=== PATIENT | female | born 1940 | race Caucasian/White ===

== ENCOUNTER 2020-10-10 16:39 | Inpatient (IN) ==
[2020-10-10] MEDS ORDERED: Aspirin 81 MG TAB.CHEW PO ONE (16:54)
[2020-10-10] MEDS ORDERED: *HR* Ticagrelor 90 MG TABLET PO ONE (16:54)
[2020-10-10] MEDS ORDERED: *HR* Heparin 5,000 UNIT/ML VIAL ONE (16:58)
[2020-10-10] MEDS ORDERED: Nitroglycerin 0.4 MG TAB.SUBL SL PRN (17:01)
[2020-10-10] MEDS ORDERED: *HR* Heparin 5,000 UNIT/ML VIAL IVP ONE (17:05)
[2020-10-10] MEDS ORDERED: ISOVUE-370 200 ML INFUS..BTL ONE ×2 (17:09→18:03)
[2020-10-10] MEDS ORDERED: Heparin 1,000 UNITS/500 mL 500 ML ONE ×2 (17:09→18:00)
[2020-10-10] MEDS ORDERED: *HR* Heparin 10,000 UNIT/10 ML VIAL ONE (17:09)
[2020-10-10] MEDS ORDERED: 0.9 % Sodium Chloride 1,000 ML ONE ×3 (17:09→18:32)
[2020-10-10] MEDS ORDERED: Nitroglycerin 1,000 MCG/5 ML VIAL IV ONE (17:09)
[2020-10-10] MEDS ORDERED: *HR* Midazolam HCl 2 MG/2 ML VIAL ONE (17:13)
[2020-10-10] MEDS ORDERED: *HR* FentaNYL (PF) 100 MCG/2 ML VIAL ONE (17:13)
[2020-10-10 17:22] LABS: Basophils # 0.1 K/mcL (0.0-0.2); Basophils % 0.6 %; Eosinophils # 0.1 K/mcL (0.0-0.6); Eosinophils % 0.6 %; Hematocrit 43.2 % (35.3-44.9); Hemoglobin 13.8 g/dL (11.5-15.4); Immature Granulocytes % 0.5 % (0-4); Lymphocytes # 1.8 K/mcL (0.6-4.6); Mean Corpuscular HGB Conc 31.9 g/dL (31.6-35.5); Mean Corpuscular Hemoglobin 31.9 pg (28.0-33.3); Mean Platelet Volume 11.8 fL (9.4-12.4); Monocytes # 0.8 K/mcL (0.0-1.3); Monocytes % 7.7 %; Platelet Count 272 K/mcL (140-400); Red Blood Count 4.32 M/mcL (3.82-4.97); Red Cell Distribution Width 13.2 % (11.5-14.5); Segmented Neutrophils % 73.6 %; White Blood Count 10.9 K/mcL (4.3-11.1)
[2020-10-10 17:24] LABS: Prothrombin Time 11.9 Seconds (9.4-12.1)
[2020-10-10 17:27] LABS: Activated Partial Thrombo Time 29.7 Seconds (26.0-36.0)
[2020-10-10 17:33] LABS: BUN/Creatinine Ratio 17 (6-26); Blood Urea Nitrogen 19 mg/dL (8-23); Calcium 9.9 mg/dL (8.6-10.3); Carbon Dioxide 24 mEq/L (23-29); Chloride 96 mEq/L (98-107); Glucose 120 mg/dL (70-105); Osmolality,Calculated 277 (280-300); Potassium 4.1 mEq/L (3.5-5.1); Sodium 132 mEq/L (136-145); Troponin I < 0.03 ng/mL (< 0.04); eGFR For African Americans 57 (> 60); eGFR For Non-African Americans 47 (> 60)
[2020-10-10] MEDS ORDERED: Perflutren Lipid Microsphere 1.3 ML in 0.9 % Sodium Chloride 8.7 ML IVP PRN (19:49)
[2020-10-10] MEDS ORDERED: 0.9 % Sodium Chloride 500 ML IVC SCH (20:00)
[2020-10-10] MEDS ORDERED: *HR* LORazepam 1 MG TABLET PO PRN (20:36)
[2020-10-10] MEDS ORDERED: Loratadine 10 MG TABLET PO PRN (20:36)
[2020-10-10] MEDS ORDERED: *HR* Atropine Sulfate 1 MG/10 ML SYRINGE ONE (23:08)
[2020-10-11] MEDS: *HR* HYDROcodone/Acet 7.5/325 mg TABLET PO PRN ×2 (03:51→20:08)
[2020-10-11] MEDS: *HR* Ticagrelor 90 MG TABLET PO SCH ×3 (04:13→20:02)
[2020-10-11 05:07] LABS: Basophils % 0.5 %; Eosinophils % 0.5 %; Hematocrit 38.6 % (35.3-44.9); Hemoglobin 12.7 g/dL (11.5-15.4); Immature Granulocytes % 0.4 % (0-4); Lymphocytes # 2.1 K/mcL (0.6-4.6); Lymphocytes % 25.4 %; Mean Corpuscular HGB Conc 32.9 g/dL (31.6-35.5); Mean Corpuscular Hemoglobin 32.5 pg (28.0-33.3); Mean Corpuscular Volume 98.7 fL (83.0-100.0); Mean Platelet Volume 11.8 fL (9.4-12.4); Monocytes # 0.7 K/mcL (0.0-1.3); Monocytes % 8.5 %; Neutrophils # 5.4 K/mcL (1.6-8.9); Platelet Count 234 K/mcL (140-400); Red Blood Count 3.91 M/mcL (3.82-4.97); Red Cell Distribution Width 13.4 % (11.5-14.5); Segmented Neutrophils % 64.7 %; White Blood Count 8.4 K/mcL (4.3-11.1)
[2020-10-11 05:24] LABS: BUN/Creatinine Ratio 19 (6-26); Blood Urea Nitrogen 17 mg/dL (8-23); Calcium 8.7 mg/dL (8.6-10.3); Carbon Dioxide 23 mEq/L (23-29); Chloride 101 mEq/L (98-107); Glucose 90 mg/dL (70-105); Osmolality,Calculated 275 (280-300); Potassium 4.1 mEq/L (3.5-5.1); Sodium 132 mEq/L (136-145); Troponin I 2.28 ng/mL (< 0.04); eGFR For African Americans > 60 (> 60); eGFR For Non-African Americans > 60 (> 60)
[2020-10-11] MEDS: Metoprolol XL (24 HR) Succ 25 MG TAB.ER.24H PO SCH (07:57)
[2020-10-11] MEDS: Aspirin 81 MG TAB.CHEW PO SCH (07:57)
[2020-10-11] MEDS: Gabapentin 400 MG CAPSULE PO SCH (07:58)
[2020-10-12 04:42] LABS: Chol/HDL Ratio 3.1 (0-4.9)
[2020-10-12 04:48] LABS: Troponin I 1.8 ng/mL (< 0.04)
[2020-10-12] MEDS: Gabapentin 400 MG CAPSULE PO SCH (07:34)
[2020-10-12] MEDS: *HR* Ticagrelor 90 MG TABLET PO SCH ×2 (07:34→20:46)
[2020-10-12] MEDS: Aspirin 81 MG TAB.CHEW PO SCH (07:34)
[2020-10-12] MEDS: Metoprolol XL (24 HR) Succ 25 MG TAB.ER.24H PO SCH (07:34)
[2020-10-12] MEDS: *HR* HYDROcodone/Acet 7.5/325 mg TABLET PO PRN ×3 (07:46→23:55)
[2020-10-12] MEDS ORDERED: Metoprolol XL (24 HR) Succ 25 MG TAB.ER.24H PO ONE ×2 (09:30→09:47)
[2020-10-12] MEDS ORDERED: Loratadine 10 MG TABLET PO PRN (09:47)
[2020-10-12] MEDS ORDERED: *HR* LORazepam 1 MG TABLET PO PRN (09:47)
[2020-10-12] MEDS ORDERED: Nitroglycerin 0.4 MG TAB.SUBL SL PRN (09:47)
[2020-10-13] MEDS: *HR* HYDROcodone/Acet 7.5/325 mg TABLET PO PRN (06:27)
[2020-10-13] MEDS: *HR* Ticagrelor 90 MG TABLET PO SCH (08:02)
[2020-10-13 08:06] VITALS: BP 143/83
[2020-10-13] MEDS ORDERED: Metoprolol XL (24 HR) Succ 25 MG TAB.ER.24H PO SCH (09:00)
[2020-10-13] MEDS ORDERED: Aspirin 81 MG TAB.CHEW PO SCH (09:00)
[2020-10-13] MEDS ORDERED: Metoprolol XL (24 HR) Succ 50 MG TAB.ER.24H PO SCH (09:00)
[2020-10-13] MEDS ORDERED: Gabapentin 400 MG CAPSULE PO SCH (09:00)
== END 2020-10-13 13:33 | disposition home or self-care (01) | DRG 247 ==
LOC: EMEROOARM 16:39 → ICNU 17:18 → 2NENU 10-12 17:43
PROVIDERS: ADMIT Internal Medicine Cardiovascular Disease; ATTEND Internal Medicine Cardiovascular Disease

== ENCOUNTER 2020-11-17 02:14 | Inpatient (IN) ==
[2020-11-17] MEDS ORDERED: Aspirin 81 MG TAB.CHEW PO ONE (02:30)
[2020-11-17 03:02] LABS: Basophils % 0.4 %; Eosinophils # 0.3 K/mcL (0.0-0.6); Eosinophils % 2.6 %; Hematocrit 38.8 % (35.3-44.9); Hemoglobin 12.6 g/dL (11.5-15.4); Immature Granulocytes % 0.2 % (0-4); Lymphocytes # 2.2 K/mcL (0.6-4.6); Lymphocytes % 22.8 %; Mean Corpuscular HGB Conc 32.5 g/dL (31.6-35.5); Mean Corpuscular Hemoglobin 32.8 pg (28.0-33.3); Mean Platelet Volume 12.7 fL (9.4-12.4); Monocytes # 0.6 K/mcL (0.0-1.3); Monocytes % 6.6 %; Neutrophils # 6.4 K/mcL (1.6-8.9); Platelet Count 192 K/mcL (140-400); Red Blood Count 3.84 M/mcL (3.82-4.97); Red Cell Distribution Width 13.6 % (11.5-14.5); Segmented Neutrophils % 67.4 %; White Blood Count 9.5 K/mcL (4.3-11.1)
[2020-11-17] MEDS: Nitroglycerin 0.4 MG TAB.SUBL SL PRN ×3 (03:10→03:22)
[2020-11-17 03:12] LABS: Prothrombin Time 11.7 Seconds (9.4-12.1)
[2020-11-17 03:25] LABS: BUN/Creatinine Ratio 15 (6-26); Blood Urea Nitrogen 14 mg/dL (8-23); Calcium 9.2 mg/dL (8.6-10.3); Carbon Dioxide 24 mEq/L (23-29); Chloride 104 mEq/L (98-107); Glucose 96 mg/dL (70-105); Osmolality,Calculated 282 (280-300); Potassium 3.8 mEq/L (3.5-5.1); Sodium 136 mEq/L (136-145); eGFR For African Americans > 60 (> 60); eGFR For Non-African Americans 59 (> 60)
[2020-11-17 03:27] LABS: Troponin I < 0.03 ng/mL (< 0.04)
[2020-11-17] MEDS: 0.9 % Sodium Chloride 1,000 ML IVC SCH ×2 (03:48→15:36)
[2020-11-17] MEDS ORDERED: Furosemide 20 MG TABLET PO PRN (04:35)
[2020-11-17] MEDS ORDERED: *HR* LORazepam 1 MG TABLET PO PRN (04:35)
[2020-11-17] MEDS ORDERED: Loratadine 10 MG TABLET PO PRN (04:35)
[2020-11-17] MEDS ORDERED: Naloxone 0.4 MG/ML INJ IVP PRN (04:39)
[2020-11-17] MEDS ORDERED: Ondansetron 4 MG/2 ML VIAL IVP PRN (04:39)
[2020-11-17] MEDS: *HR* Heparin 5,000 UNIT/ML VIAL SQ SCH ×2 (05:39→17:06)
[2020-11-17] MEDS: *HR* Ticagrelor 90 MG TABLET PO SCH ×2 (07:50→20:14)
[2020-11-17] MEDS: Aspirin 81 MG TAB.CHEW PO SCH (07:50)
[2020-11-17] MEDS: Metoprolol XL (24 HR) Succ 50 MG TAB.ER.24H PO SCH (07:50)
[2020-11-17] MEDS ORDERED: *HR* Heparin 5,000 UNIT/ML VIAL IVP ONE (10:30)
[2020-11-17] MEDS ORDERED: *HR* Heparin 5,000 UNIT/ML VIAL IVP PRN ×2 (10:30)
[2020-11-17 11:20] LABS: Hematocrit 36.5 % (35.3-44.9); Hemoglobin 11.7 g/dL (11.5-15.4); Mean Corpuscular HGB Conc 32.1 g/dL (31.6-35.5); Mean Corpuscular Hemoglobin 32.1 pg (28.0-33.3); Mean Corpuscular Volume 100.3 fL (83.0-100.0); Platelet Count 161 K/mcL (140-400); Red Blood Count 3.64 M/mcL (3.82-4.97); Red Cell Distribution Width 13.5 % (11.5-14.5); White Blood Count 7.2 K/mcL (4.3-11.1)
[2020-11-17] MEDS: Heparin 25,000UNIT/250ML 1/2NS 25,000 UNIT/250 ML IV.SOLN IVC SCH (11:22)
[2020-11-17 11:27] LABS: Heparin anti-factor XA UFH 0.05 IU/mL (0.30-0.70)
[2020-11-17 11:28] LABS: Prothrombin Time 12.1 Seconds (9.4-12.1)
[2020-11-17] MEDS: *HR* HYDROcodone/Acet 7.5/325 mg TABLET PO PRN (15:36)
[2020-11-17] MEDS: Gabapentin 400 MG CAPSULE PO SCH (20:14)
[2020-11-17] MEDS: Primidone 50 MG TABLET PO SCH (20:14)
[2020-11-18] MEDS: 0.9 % Sodium Chloride 1,000 ML IVC SCH ×3 (01:10→20:17)
[2020-11-18 01:31] LABS: Basophils # 0.1 K/mcL (0.0-0.2); Basophils % 0.8 %; Eosinophils # 0.3 K/mcL (0.0-0.6); Eosinophils % 4.6 %; Immature Granulocytes % 0.2 % (0-4); Lymphocytes # 2.1 K/mcL (0.6-4.6); Lymphocytes % 34.3 %; Mean Corpuscular HGB Conc 32.4 g/dL (31.6-35.5); Mean Corpuscular Hemoglobin 32.7 pg (28.0-33.3); Mean Corpuscular Volume 101.2 fL (83.0-100.0); Mean Platelet Volume 12.6 fL (9.4-12.4); Monocytes # 0.5 K/mcL (0.0-1.3); Monocytes % 8.9 %; Neutrophils # 3.1 K/mcL (1.6-8.9); Platelet Count 154 K/mcL (140-400); Red Blood Count 3.36 M/mcL (3.82-4.97); Red Cell Distribution Width 13.7 % (11.5-14.5); Segmented Neutrophils % 51.2 %; White Blood Count 6.1 K/mcL (4.3-11.1)
[2020-11-18 01:49] LABS: BUN/Creatinine Ratio 15 (6-26); Blood Urea Nitrogen 12 mg/dL (8-23); Calcium 8.2 mg/dL (8.6-10.3); Carbon Dioxide 22 mEq/L (23-29); Chloride 109 mEq/L (98-107); Glucose 92 mg/dL (70-105); Osmolality,Calculated 283 (280-300); Potassium 4.1 mEq/L (3.5-5.1); Sodium 137 mEq/L (136-145); eGFR For African Americans > 60 (> 60); eGFR For Non-African Americans > 60 (> 60)
[2020-11-18] MEDS: Primidone 50 MG TABLET PO SCH ×2 (09:11→20:18)
[2020-11-18] MEDS: Aspirin 81 MG TAB.CHEW PO SCH (09:11)
[2020-11-18] MEDS: *HR* Ticagrelor 90 MG TABLET PO SCH ×2 (09:11→20:17)
[2020-11-18] MEDS: Metoprolol XL (24 HR) Succ 50 MG TAB.ER.24H PO SCH (09:11)
[2020-11-18 10:10] LABS: Basophils # 0.1 K/mcL (0.0-0.2); Eosinophils # 0.3 K/mcL (0.0-0.6); Eosinophils % 4.4 %; Hematocrit 36.7 % (35.3-44.9); Hemoglobin 11.2 g/dL (11.5-15.4); Immature Granulocytes % 0.3 % (0-4); Lymphocytes # 2.3 K/mcL (0.6-4.6); Lymphocytes % 33.3 %; Mean Corpuscular HGB Conc 30.5 g/dL (31.6-35.5); Mean Corpuscular Volume 104.9 fL (83.0-100.0); Mean Platelet Volume 12.7 fL (9.4-12.4); Monocytes # 0.6 K/mcL (0.0-1.3); Neutrophils # 3.6 K/mcL (1.6-8.9); Platelet Count 167 K/mcL (140-400); Red Cell Distribution Width 14.1 % (11.5-14.5); White Blood Count 6.9 K/mcL (4.3-11.1)
[2020-11-18] MEDS ORDERED: *HR* Dextrose 50 % in Water (Vial) 50 ML VIAL IVP ONE (10:14)
[2020-11-18 10:19] LABS: Estimated Average Glucose 108 mg/dl; Hemoglobin A1C 5.4 %
[2020-11-18] MEDS: *HR* HYDROcodone/Acet 7.5/325 mg TABLET PO PRN ×2 (10:44→20:24)
[2020-11-18] MEDS ORDERED: *HR* Heparin 10,000 UNIT/10 ML VIAL ONE (13:16)
[2020-11-18] MEDS ORDERED: Heparin 1,000 UNITS/500 mL 500 ML ONE (13:16)
[2020-11-18] MEDS ORDERED: ISOVUE-370 200 ML INFUS..BTL ONE ×2 (13:16→14:29)
[2020-11-18] MEDS ORDERED: 0.9 % Sodium Chloride 2,000 ML ONE (13:16)
[2020-11-18] MEDS ORDERED: Nitroglycerin 1,000 MCG/5 ML VIAL IV ONE (13:17)
[2020-11-18] MEDS ORDERED: *HR* FentaNYL (PF) 100 MCG/2 ML VIAL ONE (13:29)
[2020-11-18] MEDS ORDERED: *HR* Midazolam HCl 2 MG/2 ML VIAL ONE (13:29)
[2020-11-18] MEDS ORDERED: Tirofiban 12.5 MG/250ML 12.5 MG/250 ML BAG IVC SCH (15:45)
[2020-11-18] MEDS: Heparin 25,000UNIT/250ML 1/2NS 25,000 UNIT/250 ML IV.SOLN IVC SCH (17:39)
[2020-11-18] MEDS: Gabapentin 400 MG CAPSULE PO SCH (20:17)
[2020-11-19] MEDS: 0.9 % Sodium Chloride 1,000 ML IVC SCH ×2 (05:39→15:42)
[2020-11-19] MEDS: *HR* HYDROcodone/Acet 7.5/325 mg TABLET PO PRN (06:09)
[2020-11-19] MEDS: Aspirin 81 MG TAB.CHEW PO SCH (07:53)
[2020-11-19] MEDS: *HR* Ticagrelor 90 MG TABLET PO SCH (07:53)
[2020-11-19] MEDS: Metoprolol XL (24 HR) Succ 50 MG TAB.ER.24H PO SCH (07:53)
[2020-11-19] MEDS: Primidone 50 MG TABLET PO SCH (07:54)
[2020-11-19] MEDS ORDERED: Perflutren Lipid Microsphere 1.3 ML in 0.9 % Sodium Chloride 8.7 ML IVP PRN (08:00)
[2020-11-19 10:45] VITALS: BP 115/67; PULSE 75; TEMP 97.7; O2SAT 94
== END 2020-11-19 16:31 | disposition home or self-care (01) | DRG 250 ==
LOC: 3BNU 02:14 → EMEROOARM 02:14 → SUATTDRO 04:30 → 3BNU 04:45
PROVIDERS: ADMIT Family Medicine; ATTEND Registered Nurse

== ENCOUNTER 2021-05-26 20:57 | Inpatient (IN) ==
[2021-05-26 21:42] LABS: Basophils # 0.1 K/mcL (0.0-0.2); Basophils % 0.6 %; Eosinophils # 0.1 K/mcL (0.0-0.6); Eosinophils % 1.1 %; Hematocrit 39.1 % (35.3-44.9); Hemoglobin 12.6 g/dL (11.5-15.4); Immature Granulocytes % 0.2 % (0-4); Lymphocytes # 2.7 K/mcL (0.6-4.6); Lymphocytes % 33.4 %; Mean Corpuscular HGB Conc 32.2 g/dL (31.6-35.5); Mean Corpuscular Hemoglobin 31.9 pg (28.0-33.3); Mean Platelet Volume 11.9 fL (9.4-12.4); Monocytes # 0.7 K/mcL (0.0-1.3); Monocytes % 8.6 %; Neutrophils # 4.6 K/mcL (1.6-8.9); Platelet Count 239 K/mcL (140-400); Red Blood Count 3.95 M/mcL (3.82-4.97); Red Cell Distribution Width 13.7 % (11.5-14.5); Segmented Neutrophils % 56.1 %; White Blood Count 8.2 K/mcL (4.3-11.1)
[2021-05-26 21:50] LABS: Prothrombin Time 11.2 Seconds (9.4-12.1)
[2021-05-26 21:52] LABS: Activated Partial Thrombo Time 35.5 Seconds (26.0-36.0)
[2021-05-26 22:03] LABS: Calcium 9.4 mg/dL (8.6-10.3); Potassium 4.4 mEq/L (3.5-5.1)
[2021-05-26 22:11] LABS: Troponin I 0.08 ng/mL (< 0.04)
[2021-05-26] MEDS ORDERED: 0.9 % Sodium Chloride 500 ML IVC ONE (23:10)
[2021-05-27 00:50] LABS: Albumin 3.9 g/dL (3.5-5.7); Albumin/Globulin Ratio 1.4 (1.1-2.2); Bilirubin,Direct 0.1 mg/dL (0.0-0.2); Bilirubin,Indirect 0.2 mg/dL (0.0-1.0); Bilirubin,Total 0.3 mg/dL (0.3-1.0); Globulin 2.8 g/dL (2.4-3.5); Total Protein 6.7 g/dL (6.4-8.9)
[2021-05-27] MEDS ORDERED: Aspirin 81 MG TAB.CHEW PO ONE (01:17)
[2021-05-27] MEDS ORDERED: Melatonin 3 MG TABLET PO PRN (02:35)
[2021-05-27] MEDS ORDERED: Naloxone 0.4 MG/ML INJ IVP PRN (02:35)
[2021-05-27] MEDS ORDERED: Perflutren Lipid Microsphere 1.3 ML in 0.9 % Sodium Chloride 8.7 ML IVP PRN (02:59)
[2021-05-27] MEDS ORDERED: Morphine Sulfate 2 MG/ML SYRINGE IVP ONE (04:10)
[2021-05-27] MEDS ORDERED: Nitroglycerin 0.4 MG TAB.SUBL SL PRN (04:47)
[2021-05-27] MEDS ORDERED: Acetaminophen 325 MG TABLET PO PRN (04:48)
[2021-05-27] MEDS ORDERED: *HR* Heparin 5,000 UNIT/ML VIAL IVP PRN (05:29)
[2021-05-27] MEDS ORDERED: *HR* Heparin 5,000 UNIT/ML VIAL IVP ONE (05:29)
[2021-05-27] MEDS ORDERED: *HR* LORazepam 2 MG/ML VIAL IVP ONE (05:44)
[2021-05-27] MEDS: Heparin 25,000UNIT/250ML 1/2NS 25,000 UNIT/250 ML IV.SOLN IVC SCH ×3 (06:21→20:27)
[2021-05-27] MEDS: Famotidine 20 MG/2 ML VIAL IVP SCH ×2 (06:22→17:23)
[2021-05-27 06:45] LABS: Hematocrit 36.2 % (35.3-44.9); Hemoglobin 11.9 g/dL (11.5-15.4); Mean Corpuscular HGB Conc 32.9 g/dL (31.6-35.5); Mean Corpuscular Hemoglobin 32.5 pg (28.0-33.3); Mean Corpuscular Volume 98.9 fL (83.0-100.0); Mean Platelet Volume 11.7 fL (9.4-12.4); Platelet Count 226 K/mcL (140-400); Red Blood Count 3.66 M/mcL (3.82-4.97); Red Cell Distribution Width 13.7 % (11.5-14.5); White Blood Count 8.4 K/mcL (4.3-11.1)
[2021-05-27 07:12] LABS: Heparin anti-factor XA UFH 1.41 IU/mL (0.30-0.70)
[2021-05-27 07:21] LABS: BUN/Creatinine Ratio 18 (6-26); Blood Urea Nitrogen 16 mg/dL (8-23); Calcium 8.9 mg/dL (8.6-10.3); Carbon Dioxide 24 mEq/L (23-29); Chloride 102 mEq/L (98-107); Glucose 95 mg/dL (70-105); Osmolality,Calculated 275 (280-300); Potassium 4.4 mEq/L (3.5-5.1); Sodium 132 mEq/L (136-145); eGFR For African Americans > 60 (> 60); eGFR For Non-African Americans > 60 (> 60)
[2021-05-27 07:23] LABS: Chol/HDL Ratio 2.2 (0-4.9); Thyroid Stimulating Hormone 3.637 mcIU/mL (0.340-5.600)
[2021-05-27 07:33] LABS: Folate 5.3 ng/mL (3.0-16.0)
[2021-05-27 08:22] LABS: Activated Partial Thrombo Time > 360.0 Seconds (26.0-36.0)
[2021-05-27] MEDS: Aspirin Enteric Coated 81 MG Tablet PO SCH (08:28)
[2021-05-27 09:18] LABS: Amorphous Sediment,Urine Few per hpf (None-Few); Bacteria,Urine Few per hpf (None-Few); Bilirubin,Urine Negative (Negative); Blood,Urine Negative (Negative); Clarity,Urine Clear (Clear); Color,Urine Light-Yellow (Yellow); Glucose,Urine (UA) Normal (Normal); Ketones,Urine Negative (Negative); Leukocyte Esterase,Urine Large (Negative); Mucus,Urine Few per lpf (None-Few); Nitrite,Urine Negative (Negative); Protein,Urine Negative (Neg-Trace); Specific Gravity,Urine 1.009 (1.010-1.025); Squamous Epithelial Cell,Urine Few per hpf (None-Few); Urobilinogen,Urine Normal (Normal); WBC,Urine 15-30 per hpf (0-3)
[2021-05-27 09:28] LABS: Influenza A PCR Negative (Negative); Influenza B PCR Negative (Negative); Resp. Syncytial Virus PCR Negative (Negative)
[2021-05-27 09:29] LABS: Estimated Average Glucose 117 mg/dl; Hemoglobin A1C 5.7 %
[2021-05-27 09:35] LABS: SARS-CoV-2 by PCR (In House) Negative (Negative)
[2021-05-27] MEDS ORDERED: Regadenoson 0.4 MG/5 ML SYRINGE IVP ONE (10:35)
[2021-05-27] MEDS: *HR* Ticagrelor 90 MG TABLET PO SCH ×2 (14:36→20:18)
[2021-05-27] MEDS: *HR* HYDROcodone/Acet 7.5/325 mg TABLET PO PRN ×2 (15:51→22:25)
[2021-05-27] MEDS: Metoprolol XL (24 HR) Succ 50 MG TAB.ER.24H PO SCH (17:23)
[2021-05-28] MEDS: Famotidine 20 MG/2 ML VIAL IVP SCH (05:06)
[2021-05-28] MEDS ORDERED: *HR* LORazepam 1 MG TABLET PO PRN (07:55)
[2021-05-28] MEDS ORDERED: Ranolazine 500 MG TAB.ER.12H PO SCH (09:00)
[2021-05-28] MEDS: *HR* HYDROcodone/Acet 7.5/325 mg TABLET PO PRN ×2 (09:27→17:25)
[2021-05-28] MEDS: Ranolazine 500 MG TAB.ER.12H PO SCH ×2 (09:30→19:50)
[2021-05-28] MEDS: Metoprolol XL (24 HR) Succ 50 MG TAB.ER.24H PO SCH (09:31)
[2021-05-28] MEDS: Isosorbide MONOnitrate (24 HR) 30 MG TAB.ER.24H PO SCH (09:31)
[2021-05-28] MEDS: *HR* Ticagrelor 90 MG TABLET PO SCH (09:31)
[2021-05-28] MEDS: Aspirin Enteric Coated 81 MG Tablet PO SCH (09:31)
[2021-05-28] MEDS: Primidone 50 MG TABLET PO SCH ×2 (09:41→19:51)
[2021-05-28] MEDS: Heparin 25,000UNIT/250ML 1/2NS 25,000 UNIT/250 ML IV.SOLN IVC SCH (10:04)
[2021-05-28] MEDS ORDERED: *HR* FentaNYL (PF) 100 MCG/2 ML VIAL ONE (10:24)
[2021-05-28] MEDS ORDERED: *HR* Midazolam HCl 2 MG/2 ML VIAL ONE (10:24)
[2021-05-28] MEDS ORDERED: Nitroglycerin 1,000 MCG/5 ML VIAL IV ONE (10:25)
[2021-05-28] MEDS ORDERED: 0.9 % Sodium Chloride 1,000 ML ONE (10:25)
[2021-05-28] MEDS ORDERED: *HR* Heparin 10,000 UNIT/10 ML VIAL ONE ×2 (10:25→10:34)
[2021-05-28] MEDS ORDERED: Heparin 1,000 UNITS/500 mL 500 ML ONE (10:25)
[2021-05-28] MEDS ORDERED: ISOVUE-370 200 ML INFUS..BTL ONE (10:25)
[2021-05-29] MEDS: *HR* HYDROcodone/Acet 7.5/325 mg TABLET PO PRN ×2 (04:26→19:46)
[2021-05-29 04:39] LABS: Basophils # 0.1 K/mcL (0.0-0.2); Eosinophils # 0.1 K/mcL (0.0-0.6); Eosinophils % 1.6 %; Hematocrit 36.4 % (35.3-44.9); Hemoglobin 12.1 g/dL (11.5-15.4); Immature Granulocytes % 0.3 % (0-4); Lymphocytes # 2.2 K/mcL (0.6-4.6); Lymphocytes % 35.8 %; Mean Corpuscular HGB Conc 33.2 g/dL (31.6-35.5); Mean Corpuscular Hemoglobin 32.7 pg (28.0-33.3); Mean Corpuscular Volume 98.4 fL (83.0-100.0); Monocytes # 0.7 K/mcL (0.0-1.3); Monocytes % 10.5 %; Neutrophils # 3.1 K/mcL (1.6-8.9); Platelet Count 216 K/mcL (140-400); Red Cell Distribution Width 14.1 % (11.5-14.5); Segmented Neutrophils % 50.8 %; White Blood Count 6.2 K/mcL (4.3-11.1)
[2021-05-29 04:54] LABS: BUN/Creatinine Ratio 21 (6-26); Blood Urea Nitrogen 17 mg/dL (8-23); Calcium 8.9 mg/dL (8.6-10.3); Carbon Dioxide 20 mEq/L (23-29); Chloride 105 mEq/L (98-107); Glucose 100 mg/dL (70-105); Osmolality,Calculated 276 (280-300); Phosphorous 3.8 mg/dL (2.7-4.5); Potassium 4.1 mEq/L (3.5-5.1); Sodium 132 mEq/L (136-145); eGFR For African Americans > 60 (> 60); eGFR For Non-African Americans > 60 (> 60)
[2021-05-29] MEDS: *HR* Heparin 5,000 UNIT/ML VIAL IVP PRN (05:06)
[2021-05-29] MEDS: Ranolazine 500 MG TAB.ER.12H PO SCH ×2 (08:05→21:55)
[2021-05-29] MEDS: Aspirin Enteric Coated 81 MG Tablet PO SCH (08:05)
[2021-05-29] MEDS: Metoprolol XL (24 HR) Succ 50 MG TAB.ER.24H PO SCH (08:08)
[2021-05-29] MEDS: Isosorbide MONOnitrate (24 HR) 30 MG TAB.ER.24H PO SCH (08:08)
[2021-05-29] MEDS: Famotidine 20 MG/2 ML VIAL IVP SCH (08:09)
[2021-05-29] MEDS: Primidone 50 MG TABLET PO SCH ×2 (08:12→21:55)
[2021-05-29] MEDS: *HR* LORazepam 1 MG TABLET PO PRN (20:07)
[2021-05-29] MEDS: Heparin 25,000UNIT/250ML 1/2NS 25,000 UNIT/250 ML IV.SOLN IVC SCH (21:55)
[2021-05-30] MEDS: Heparin 25,000UNIT/250ML 1/2NS 25,000 UNIT/250 ML IV.SOLN IVC SCH (06:56)
[2021-05-30] MEDS: Famotidine 20 MG/2 ML VIAL IVP SCH (08:09)
[2021-05-30] MEDS: Isosorbide MONOnitrate (24 HR) 30 MG TAB.ER.24H PO SCH (08:09)
[2021-05-30] MEDS: Primidone 50 MG TABLET PO SCH ×2 (08:09→23:03)
[2021-05-30] MEDS: Ranolazine 500 MG TAB.ER.12H PO SCH ×2 (08:09→23:02)
[2021-05-30] MEDS: Metoprolol XL (24 HR) Succ 50 MG TAB.ER.24H PO SCH (08:09)
[2021-05-30] MEDS: Aspirin Enteric Coated 81 MG Tablet PO SCH (08:09)
[2021-05-30] MEDS: *HR* HYDROcodone/Acet 7.5/325 mg TABLET PO PRN ×2 (13:23→23:15)
[2021-05-30] MEDS: *HR* LORazepam 1 MG TABLET PO PRN (23:15)
[2021-05-31] MEDS: Morphine Sulfate 2 MG/ML SYRINGE IVP PRN ×2 (04:38→14:10)
[2021-05-31] MEDS: Heparin 25,000UNIT/250ML 1/2NS 25,000 UNIT/250 ML IV.SOLN IVC SCH (07:34)
[2021-05-31] MEDS: Isosorbide MONOnitrate (24 HR) 30 MG TAB.ER.24H PO SCH (07:44)
[2021-05-31] MEDS: Ranolazine 500 MG TAB.ER.12H PO SCH ×2 (07:45→19:58)
[2021-05-31] MEDS: Metoprolol XL (24 HR) Succ 50 MG TAB.ER.24H PO SCH (07:45)
[2021-05-31] MEDS: Primidone 50 MG TABLET PO SCH ×2 (07:46→19:57)
[2021-05-31] MEDS: Famotidine 20 MG/2 ML VIAL IVP SCH (07:46)
[2021-05-31] MEDS: Aspirin Enteric Coated 81 MG Tablet PO SCH (07:46)
[2021-05-31] MEDS: *HR* HYDROcodone/Acet 7.5/325 mg TABLET PO PRN (07:56)
[2021-05-31 11:03] LABS: Chol/HDL Ratio 1.8 (0-4.9)
[2021-05-31] MEDS: *HR* LORazepam 1 MG TABLET PO PRN (14:48)
[2021-05-31] MEDS ORDERED: Morphine Sulfate 2 MG/ML SYRINGE IVP ONE (16:36)
[2021-05-31] MEDS: Ondansetron 4 MG/2 ML VIAL IVP PRN (23:45)
[2021-06-01] MEDS: *HR* HYDROcodone/Acet 7.5/325 mg TABLET PO PRN ×2 (00:46→22:51)
[2021-06-01] MEDS: *HR* LORazepam 1 MG TABLET PO PRN ×2 (00:46→22:51)
[2021-06-01 02:10] LABS: Basophils # 0.1 K/mcL (0.0-0.2); Basophils % 0.6 %; Eosinophils # 0.2 K/mcL (0.0-0.6); Eosinophils % 2.3 %; Hematocrit 37.6 % (35.3-44.9); Hemoglobin 11.6 g/dL (11.5-15.4); Immature Granulocytes % 0.4 % (0-4); Lymphocytes # 2.6 K/mcL (0.6-4.6); Lymphocytes % 31.2 %; Mean Corpuscular HGB Conc 30.9 g/dL (31.6-35.5); Mean Corpuscular Hemoglobin 31.5 pg (28.0-33.3); Mean Corpuscular Volume 102.2 fL (83.0-100.0); Monocytes # 0.8 K/mcL (0.0-1.3); Neutrophils # 4.6 K/mcL (1.6-8.9); Platelet Count 195 K/mcL (140-400); Red Blood Count 3.68 M/mcL (3.82-4.97); Red Cell Distribution Width 14.3 % (11.5-14.5); Segmented Neutrophils % 55.5 %; White Blood Count 8.3 K/mcL (4.3-11.1)
[2021-06-01 02:28] LABS: BUN/Creatinine Ratio 25 (6-26); Blood Urea Nitrogen 20 mg/dL (8-23); Calcium 9.4 mg/dL (8.6-10.3); Carbon Dioxide 20 mEq/L (23-29); Chloride 100 mEq/L (98-107); Glucose 88 mg/dL (70-105); Osmolality,Calculated 268 (280-300); Potassium 4.8 mEq/L (3.5-5.1); Sodium 128 mEq/L (136-145); eGFR For African Americans > 60 (> 60); eGFR For Non-African Americans > 60 (> 60)
[2021-06-01] MEDS: Heparin 25,000UNIT/250ML 1/2NS 25,000 UNIT/250 ML IV.SOLN IVC SCH ×2 (07:15→14:56)
[2021-06-01] MEDS: Ranolazine 500 MG TAB.ER.12H PO SCH ×2 (09:25→20:28)
[2021-06-01] MEDS: Isosorbide MONOnitrate (24 HR) 30 MG TAB.ER.24H PO SCH (09:25)
[2021-06-01] MEDS: Famotidine 20 MG/2 ML VIAL IVP SCH (09:25)
[2021-06-01] MEDS: Aspirin Enteric Coated 81 MG Tablet PO SCH (09:25)
[2021-06-01] MEDS: Metoprolol XL (24 HR) Succ 50 MG TAB.ER.24H PO SCH (09:25)
[2021-06-01] MEDS: Primidone 50 MG TABLET PO SCH ×2 (09:25→20:28)
[2021-06-01] MEDS: Morphine Sulfate 2 MG/ML SYRINGE IVP PRN (12:23)
[2021-06-02 00:40] LABS: Basophils % 0.5 %; Eosinophils # 0.1 K/mcL (0.0-0.6); Eosinophils % 1.3 %; Hematocrit 33.6 % (35.3-44.9); Hemoglobin 11.1 g/dL (11.5-15.4); Immature Granulocytes % 0.3 % (0-4); Lymphocytes # 2.2 K/mcL (0.6-4.6); Lymphocytes % 28.1 %; Mean Corpuscular Hemoglobin 32.1 pg (28.0-33.3); Mean Corpuscular Volume 97.1 fL (83.0-100.0); Mean Platelet Volume 12.4 fL (9.4-12.4); Monocytes # 0.9 K/mcL (0.0-1.3); Monocytes % 10.7 %; Neutrophils # 4.7 K/mcL (1.6-8.9); Platelet Count 175 K/mcL (140-400); Red Blood Count 3.46 M/mcL (3.82-4.97); Segmented Neutrophils % 59.1 %; White Blood Count 7.9 K/mcL (4.3-11.1)
[2021-06-02 00:54] LABS: INR 1.1; Prothrombin Time 12.3 Seconds (9.4-12.1)
[2021-06-02 00:58] LABS: BUN/Creatinine Ratio 23 (6-26); Blood Urea Nitrogen 18 mg/dL (8-23); Carbon Dioxide 22 mEq/L (23-29); Chloride 95 mEq/L (98-107); Glucose 104 mg/dL (70-105); Magnesium 1.7 mg/dL (1.6-2.6); Osmolality,Calculated 260 (280-300); Potassium 4.5 mEq/L (3.5-5.1); Sodium 124 mEq/L (136-145); eGFR For African Americans > 60 (> 60); eGFR For Non-African Americans > 60 (> 60)
[2021-06-02] MEDS: *HR* Heparin 5,000 UNIT/ML VIAL IVP PRN (01:14)
[2021-06-02] MEDS: Primidone 50 MG TABLET PO SCH ×2 (08:46→21:49)
[2021-06-02] MEDS: Famotidine 20 MG/2 ML VIAL IVP SCH (08:46)
[2021-06-02] MEDS: Metoprolol XL (24 HR) Succ 50 MG TAB.ER.24H PO SCH (08:46)
[2021-06-02] MEDS: Aspirin Enteric Coated 81 MG Tablet PO SCH (08:47)
[2021-06-02] MEDS: Isosorbide MONOnitrate (24 HR) 30 MG TAB.ER.24H PO SCH (08:47)
[2021-06-02] MEDS: Ranolazine 500 MG TAB.ER.12H PO SCH ×2 (08:47→21:49)
[2021-06-02] MEDS: 0.9 % Sodium Chloride 1,000 ML IVC SCH ×2 (08:54→21:50)
[2021-06-02 09:42] LABS: BUN/Creatinine Ratio 21 (6-26); Blood Urea Nitrogen 18 mg/dL (8-23); Calcium 9.5 mg/dL (8.6-10.3); Carbon Dioxide 22 mEq/L (23-29); Chloride 95 mEq/L (98-107); Glucose 105 mg/dL (70-105); Osmolality,Calculated 262 (280-300); Potassium 4.3 mEq/L (3.5-5.1); Sodium 125 mEq/L (136-145); eGFR For African Americans > 60 (> 60); eGFR For Non-African Americans > 60 (> 60)
[2021-06-02] MEDS: *HR* HYDROcodone/Acet 7.5/325 mg TABLET PO PRN ×2 (13:59→21:49)
[2021-06-02] MEDS: *HR* LORazepam 1 MG TABLET PO PRN ×2 (14:03→21:49)
[2021-06-02] MEDS: Chlorhexidine Rinse 15 ML MOUTHWASH MM SCH (21:50)
[2021-06-03] MEDS: Heparin 25,000UNIT/250ML 1/2NS 25,000 UNIT/250 ML IV.SOLN IVC SCH ×2 (01:44→19:25)
[2021-06-03] MEDS ORDERED: Cardioplegic Solution w/ Potassium 5 MEQ TH ONE ×3 (06:00)
[2021-06-03] MEDS ORDERED: Cardioplegic Solution w/ Potassium 20 MEQ TH ONE (06:00)
[2021-06-03] MEDS ORDERED: Heparin 15,000 UNIT in 0.9 % Sodium Chloride 500 ML IV ONE (06:00)
[2021-06-03] MEDS ORDERED: Aspirin 81 MG TAB.CHEW PO ONE (06:00)
[2021-06-03] MEDS ORDERED: Norepinephrine 4 MG in 0.9 % Sodium Chloride 250 ML IVC PRN (06:00)
[2021-06-03 06:13] LABS: Basophils % 0.6 %; Eosinophils # 0.1 K/mcL (0.0-0.6); Eosinophils % 1.6 %; Hematocrit 32.1 % (35.3-44.9); Hemoglobin 10.7 g/dL (11.5-15.4); Immature Granulocytes % 0.3 % (0-4); Lymphocytes # 2.3 K/mcL (0.6-4.6); Lymphocytes % 37.4 %; Mean Corpuscular HGB Conc 33.3 g/dL (31.6-35.5); Mean Corpuscular Hemoglobin 32.3 pg (28.0-33.3); Mean Platelet Volume 12.3 fL (9.4-12.4); Monocytes # 0.8 K/mcL (0.0-1.3); Monocytes % 13.2 %; Neutrophils # 2.9 K/mcL (1.6-8.9); Platelet Count 178 K/mcL (140-400); Red Blood Count 3.31 M/mcL (3.82-4.97); Red Cell Distribution Width 14.1 % (11.5-14.5); Segmented Neutrophils % 46.9 %; White Blood Count 6.2 K/mcL (4.3-11.1)
[2021-06-03 06:19] LABS: Activated Partial Thrombo Time 50.5 Seconds (26.0-36.0)
[2021-06-03 06:25] LABS: BUN/Creatinine Ratio 17 (6-26); Blood Urea Nitrogen 14 mg/dL (8-23); Carbon Dioxide 25 mEq/L (23-29); Chloride 99 mEq/L (98-107); Glucose 100 mg/dL (70-105); Magnesium 1.7 mg/dL (1.6-2.6); Osmolality,Calculated 267 (280-300); Potassium 4.1 mEq/L (3.5-5.1); Sodium 128 mEq/L (136-145); eGFR For African Americans > 60 (> 60); eGFR For Non-African Americans > 60 (> 60)
[2021-06-03] MEDS ORDERED: CeFAZolin Syr 2,000MG/20 ML 2,000 MG/20 ML SYRINGE IVPB ONE (07:00)
[2021-06-03 08:09] LABS: INR 1.2; Prothrombin Time 13.2 Seconds (9.4-12.1)
[2021-06-03] MEDS: Aspirin Enteric Coated 81 MG Tablet PO SCH (08:28)
[2021-06-03] MEDS: Ranolazine 500 MG TAB.ER.12H PO SCH ×2 (08:28→21:35)
[2021-06-03] MEDS: Metoprolol XL (24 HR) Succ 50 MG TAB.ER.24H PO SCH (08:29)
[2021-06-03] MEDS: Primidone 50 MG TABLET PO SCH ×2 (08:29→21:35)
[2021-06-03] MEDS: Isosorbide MONOnitrate (24 HR) 30 MG TAB.ER.24H PO SCH (08:29)
[2021-06-03] MEDS: Chlorhexidine Rinse 15 ML MOUTHWASH MM SCH (08:30)
[2021-06-03] MEDS: Famotidine 20 MG/2 ML VIAL IVP SCH (08:30)
[2021-06-03] MEDS: *HR* HYDROcodone/Acet 7.5/325 mg TABLET PO PRN ×2 (08:35→21:35)
[2021-06-03] MEDS: *HR* LORazepam 1 MG TABLET PO PRN (08:40)
[2021-06-03] MEDS: 0.9 % Sodium Chloride 1,000 ML IVC SCH ×3 (11:58→19:25)
[2021-06-03 13:16] LABS: Thyroid Stimulating Hormone 2.482 mcIU/mL (0.340-5.600)
[2021-06-04] MEDS: Ondansetron 4 MG/2 ML VIAL IVP PRN (01:14)
[2021-06-04] MEDS: *HR* LORazepam 1 MG TABLET PO PRN ×2 (01:14→21:05)
[2021-06-04] MEDS: 0.9 % Sodium Chloride 1,000 ML IVC SCH (03:25)
[2021-06-04 05:30] LABS: Basophils % 0.5 %; Eosinophils # 0.1 K/mcL (0.0-0.6); Eosinophils % 1.3 %; Hematocrit 30.3 % (35.3-44.9); Immature Granulocytes % 0.3 % (0-4); Lymphocytes # 2.9 K/mcL (0.6-4.6); Lymphocytes % 36.7 %; Mean Corpuscular Hemoglobin 32.6 pg (28.0-33.3); Mean Corpuscular Volume 98.7 fL (83.0-100.0); Mean Platelet Volume 12.1 fL (9.4-12.4); Monocytes % 12.4 %; Neutrophils # 3.8 K/mcL (1.6-8.9); Platelet Count 179 K/mcL (140-400); Red Blood Count 3.07 M/mcL (3.82-4.97); Red Cell Distribution Width 14.7 % (11.5-14.5); Segmented Neutrophils % 48.8 %; White Blood Count 7.8 K/mcL (4.3-11.1)
[2021-06-04 05:42] LABS: INR 1.1
[2021-06-04 05:44] LABS: BUN/Creatinine Ratio 15 (6-26); Blood Urea Nitrogen 12 mg/dL (8-23); Calcium 8.5 mg/dL (8.6-10.3); Carbon Dioxide 23 mEq/L (23-29); Chloride 103 mEq/L (98-107); Glucose 91 mg/dL (70-105); Magnesium 1.7 mg/dL (1.6-2.6); Osmolality,Calculated 269 (280-300); Potassium 4.2 mEq/L (3.5-5.1); Sodium 130 mEq/L (136-145); eGFR For African Americans > 60 (> 60); eGFR For Non-African Americans > 60 (> 60)
[2021-06-04] MEDS: Isosorbide MONOnitrate (24 HR) 30 MG TAB.ER.24H PO SCH (07:26)
[2021-06-04] MEDS: Metoprolol XL (24 HR) Succ 50 MG TAB.ER.24H PO SCH (07:27)
[2021-06-04] MEDS: Primidone 50 MG TABLET PO SCH ×2 (07:27→20:57)
[2021-06-04] MEDS: Aspirin Enteric Coated 81 MG Tablet PO SCH (07:27)
[2021-06-04] MEDS: Ranolazine 500 MG TAB.ER.12H PO SCH (07:28)
[2021-06-04] MEDS: Famotidine 20 MG/2 ML VIAL IVP SCH (07:28)
[2021-06-04] MEDS: *HR* HYDROcodone/Acet 7.5/325 mg TABLET PO PRN ×2 (07:33→15:32)
[2021-06-04] MEDS ORDERED: Tolvaptan 15 MG TABLET PO ONE (11:25)
[2021-06-04] MEDS: Heparin 25,000UNIT/250ML 1/2NS 25,000 UNIT/250 ML IV.SOLN IVC SCH (16:21)
[2021-06-04] MEDS ORDERED: *HR* LORazepam 1 MG TABLET PO PRN (22:18)
[2021-06-04] MEDS ORDERED: Ondansetron 4 MG/2 ML VIAL IVP PRN (22:19)
[2021-06-05] MEDS: *HR* HYDROcodone/Acet 7.5/325 mg TABLET PO PRN ×4 (01:03→20:25)
[2021-06-05] MEDS: Chlorhexidine Rinse 15 ML MOUTHWASH MM SCH ×2 (05:58→22:18)
[2021-06-05] MEDS ORDERED: NiCARdipine 2.5 MG/10 ML Syringe IVPB ONE (06:09)
[2021-06-05] MEDS ORDERED: *HR* Midazolam HCl 5 MG/5 ML VIAL IVP ONE ×2 (06:18→09:50)
[2021-06-05] MEDS ORDERED: *HR* FentaNYL (PF) 250 MCG/5 ML VIAL ONE ×2 (06:19→09:51)
[2021-06-05] MEDS ORDERED: *HR* Rocuronium Bromide 50 MG/5 ML VIAL ONE (06:20)
[2021-06-05] MEDS ORDERED: *HR* Etomidate 20 MG/10 ML AMPUL IVP ONE (06:21)
[2021-06-05] MEDS ORDERED: Famotidine 20 MG/2 ML VIAL ONE (06:21)
[2021-06-05] MEDS ORDERED: Calcium Gluconate 1,000 MG/10 ML VIAL ONE ×2 (06:21→10:39)
[2021-06-05] MEDS ORDERED: Tranexamic Acid 1,000 MG/10 ML VIAL ONE ×2 (06:21→10:00)
[2021-06-05] MEDS ORDERED: Protamine Sulfate 250 MG/25 ML VIAL IVP ONE (06:23)
[2021-06-05] MEDS ORDERED: Heparin 15,000 UNIT in 0.9 % Sodium Chloride 500 ML IV ONE (07:45)
[2021-06-05] MEDS ORDERED: Cardioplegic Solution w/ Potassium 20 MEQ TH ONE (07:45)
[2021-06-05] MEDS ORDERED: Cardioplegic Solution w/ Potassium 5 MEQ TH ONE ×3 (07:45)
[2021-06-05] MEDS ORDERED: Norepinephrine 4 MG in 0.9 % Sodium Chloride 250 ML IVC PRN (07:45)
[2021-06-05] MEDS ORDERED: CeFAZolin Syr 2,000MG/20 ML 2,000 MG/20 ML SYRINGE IVPB ONE ×2 (08:00→09:15)
[2021-06-05 08:10] LABS: ABG Base Excess -3 mEq/L (-2 to 3); ABG Chloride 105 mEq/L (98-107); ABG Glucose 86 mg/dL (60-95); ABG HCO3 22 mEq/L (21-27); ABG Ionized Calcium 1.26 mmol/L (1.15-1.35); ABG Oxygen Saturation 100 % (95-98); ABG PCO2 36 mmHg (35-45); ABG PH 7.39 pH Units (7.32-7.45); ABG PO2 171 mmHg (85-104); ABG TCO2 23 mEq/L (20-26)
[2021-06-05] MEDS ORDERED: niCARdipine 40 MG/200 ML MLS IVC ONE (08:57)
[2021-06-05 09:41] LABS: ABG Base Excess -5 mEq/L (-2 to 3); ABG Chloride 106 mEq/L (98-107); ABG Glucose 105 mg/dL (60-95); ABG HCO3 20 mEq/L (21-27); ABG Oxygen Saturation 100 % (95-98); ABG PCO2 35 mmHg (35-45); ABG PH 7.36 pH Units (7.32-7.45); ABG PO2 182 mmHg (85-104); ABG TCO2 21 mEq/L (20-26)
[2021-06-05] MEDS ORDERED: *HR* Phenylephrine 10 MG/ML VIAL ONE (10:00)
[2021-06-05] MEDS ORDERED: Mannitol 25% vial 12.5 GM/50 ML VIAL ONE (10:00)
[2021-06-05] MEDS ORDERED: *HR* Heparin 10,000 UNIT/10 ML VIAL ONE (10:00)
[2021-06-05] MEDS ORDERED: Albumin Human 25% 25 GM/100 ML IV.SOLN ONE (10:00)
[2021-06-05] MEDS ORDERED: Sodium Bicarbonate 50 MEQ/50 ML VIAL ONE (10:00)
[2021-06-05] MEDS ORDERED: *HR* Magnesium Sulfate 2 GM/50 ML PIGGYBACK IVPB ONE (10:00)
[2021-06-05 10:40] LABS: ABG Base Excess -3 mEq/L (-2 to 3); ABG Chloride 101 mEq/L (98-107); ABG Glucose 164 mg/dL (60-95); ABG HCO3 22 mEq/L (21-27); ABG Ionized Calcium 1.09 mmol/L (1.15-1.35); ABG Oxygen Saturation 100 % (95-98); ABG PCO2 34 mmHg (35-45); ABG PH 7.41 pH Units (7.32-7.45); ABG PO2 595 mmHg (85-104); ABG TCO2 23 mEq/L (20-26)
[2021-06-05 10:56] LABS: ABG Base Excess -2 mEq/L (-2 to 3); ABG Chloride 103 mEq/L (98-107); ABG Glucose 146 mg/dL (60-95); ABG HCO3 23 mEq/L (21-27); ABG Ionized Calcium 1.12 mmol/L (1.15-1.35); ABG Oxygen Saturation 100 % (95-98); ABG PCO2 36 mmHg (35-45); ABG PH 7.41 pH Units (7.32-7.45); ABG PO2 586 mmHg (85-104); ABG TCO2 24 mEq/L (20-26)
[2021-06-05 11:21] LABS: ABG Base Excess -5 mEq/L (-2 to 3); ABG Chloride 104 mEq/L (98-107); ABG Glucose 124 mg/dL (60-95); ABG HCO3 20 mEq/L (21-27); ABG Ionized Calcium 1.52 mmol/L (1.15-1.35); ABG Oxygen Saturation 100 % (95-98); ABG PCO2 34 mmHg (35-45); ABG PH 7.38 pH Units (7.32-7.45); ABG PO2 196 mmHg (85-104); ABG TCO2 21 mEq/L (20-26)
[2021-06-05] MEDS ORDERED: Albumin Human 5% 12.5 GM/250 ML IV.SOLN IVPB PRN (11:31)
[2021-06-05] MEDS ORDERED: Calcium Gluconate 1gm/50mL 1 GM/50 ML BAG IVPB PRN (11:31)
[2021-06-05] MEDS ORDERED: Acetaminophen 650 MG RECTAL SUPP RC PRN (11:31)
[2021-06-05] MEDS ORDERED: *HR* Dextrose 50 % in Water (Syg) 50 ML SYRINGE IVP PRN (11:31)
[2021-06-05] MEDS ORDERED: Insulin Regular, Human 100 UNIT/ML IV PRN (11:31)
[2021-06-05] MEDS ORDERED: Naloxone 0.4 MG/ML INJ IVP PRN (11:31)
[2021-06-05] MEDS ORDERED: Sennosides 8.6 MG TABLET PO PRN (11:31)
[2021-06-05 12:45] LABS: ABG Base Excess -4 mEq/L (-2 to 3); ABG HCO3 21 mEq/L (21-27); ABG Oxygen Saturation 97 % (95-98); ABG PCO2 38 mmHg (35-45); ABG PH 7.35 pH Units (7.32-7.45); ABG PO2 93 mmHg (85-104); ABG TCO2 22 mEq/L (20-26); Blood Gas Modality ASSIST CONTROL; Blood Gas VT 500 cc
[2021-06-05 12:46] LABS: Lymphocytes % 10.2 %; Mean Corpuscular Hemoglobin 31.6 pg (28.0-33.3)
[2021-06-05 12:48] LABS: Basophils # 0.1 K/mcL (0.0-0.2); Basophils % 0.3 %; Eosinophils # 0.1 K/mcL (0.0-0.6); Eosinophils % 0.6 %; Hematocrit 35.8 % (35.3-44.9); Hemoglobin 11.7 g/dL (11.5-15.4); Immature Granulocytes % 0.6 % (0-4); Immature Platelets 12.4 % (1.1-6.1); Mean Corpuscular HGB Conc 32.7 g/dL (31.6-35.5); Mean Corpuscular Volume 96.8 fL (83.0-100.0); Mean Platelet Volume 12.2 fL (9.4-12.4); Monocytes # 1.4 K/mcL (0.0-1.3); Monocytes % 7.4 %; Platelet Count 100 K/mcL (140-400); Red Cell Distribution Width 15.6 % (11.5-14.5); Segmented Neutrophils % 80.9 %; White Blood Count 19.1 K/mcL (4.3-11.1)
[2021-06-05 12:55] LABS: Neutrophils # 15.5 K/mcL (1.6-8.9)
[2021-06-05 12:56] LABS: INR 1.2; Prothrombin Time 13.7 Seconds (9.4-12.1)
[2021-06-05 12:59] LABS: Activated Partial Thrombo Time 35.9 Seconds (26.0-36.0)
[2021-06-05] MEDS: Metoclopramide 10 MG/2 ML VIAL IVP SCH ×2 (13:00→16:22)
[2021-06-05] MEDS: *HR* FentaNYL (PF) 100 MCG/2 ML VIAL IVP PRN ×2 (13:01→23:36)
[2021-06-05 13:02] LABS: BUN/Creatinine Ratio 14 (6-26); Blood Urea Nitrogen 10 mg/dL (8-23); Calcium 8.6 mg/dL (8.6-10.3); Carbon Dioxide 21 mEq/L (23-29); Chloride 109 mEq/L (98-107); Glucose 87 mg/dL (70-105); Magnesium 2.3 mg/dL (1.6-2.6); Osmolality,Calculated 282 (280-300); Potassium 3.2 mEq/L (3.5-5.1); Sodium 137 mEq/L (136-145); eGFR For African Americans > 60 (> 60); eGFR For Non-African Americans > 60 (> 60)
[2021-06-05] MEDS: 0.9 % Sodium Chloride w KCl 20 MEQ/1,000 ML MLS IVC SCH (13:02)
[2021-06-05] MEDS: niCARdipine 20 MG/200 ML MLS IVC SCH ×2 (13:40→16:02)
[2021-06-05] MEDS: Pantoprazole 40 MG VIAL IVP SCH (13:50)
[2021-06-05] MEDS: Potassium Chloride 40 MEQ/200 ML BAG IVPB PRN ×2 (13:51→14:50)
[2021-06-05] MEDS: Norepinephrine 4 MG/254 ML IV.SOLN IVC SCH (15:34)
[2021-06-05 15:54] LABS: ABG Base Excess -7 mEq/L (-2 to 3); ABG HCO3 19 mEq/L (21-27); ABG Oxygen Saturation 96 % (95-98); ABG PCO2 36 mmHg (35-45); ABG PH 7.33 pH Units (7.32-7.45); ABG PO2 87 mmHg (85-104); ABG TCO2 20 mEq/L (20-26); Blood Gas Modality ASSIST CONTROL; Blood Gas VT 500 cc
[2021-06-05] MEDS: CeFAZolin 2 GM/120 ML BAG IVPB SCH (16:21)
[2021-06-05 18:08] LABS: ABG Base Excess -4 mEq/L (-2 to 3); ABG Chloride 101 mEq/L (98-107); ABG Glucose 158 mg/dL (60-95); ABG HCO3 20 mEq/L (21-27); ABG Ionized Calcium 1.05 mmol/L (1.15-1.35); ABG PCO2 30 mmHg (35-45); ABG PH 7.43 pH Units (7.32-7.45); ABG PO2 > 630 mmHg (85-104); ABG TCO2 21 mEq/L (20-26)
[2021-06-05 20:09] LABS: ABG Base Excess -7 mEq/L (-2 to 3); ABG HCO3 18 mEq/L (21-27); ABG Oxygen Saturation 92 % (95-98); ABG PCO2 34 mmHg (35-45); ABG PH 7.34 pH Units (7.32-7.45); ABG PO2 68 mmHg (85-104); ABG TCO2 19 mEq/L (20-26); Blood Gas Modality CPAP/PS; Blood Gas Pressure Support 8 cm H2O
[2021-06-05 20:30] LABS: Magnesium 2.3 mg/dL (1.6-2.6); Potassium 4.3 mEq/L (3.5-5.1)
[2021-06-05 21:03] LABS: ABG Base Excess -6 mEq/L (-2 to 3); ABG HCO3 19 mEq/L (21-27); ABG Oxygen Saturation 88 % (95-98); ABG PCO2 35 mmHg (35-45); ABG PH 7.35 pH Units (7.32-7.45); ABG PO2 57 mmHg (85-104); ABG TCO2 20 mEq/L (20-26)
[2021-06-06] MEDS: CeFAZolin 2 GM/120 ML BAG IVPB SCH (01:20)
[2021-06-06] MEDS: Metoclopramide 10 MG/2 ML VIAL IVP SCH ×5 (01:21→23:00)
[2021-06-06] MEDS: *HR* FentaNYL (PF) 100 MCG/2 ML VIAL IVP PRN ×3 (02:37→09:35)
[2021-06-06 03:32] LABS: Immature Granulocytes % 0.4 % (0-4); Red Cell Distribution Width 16.2 % (11.5-14.5)
[2021-06-06 03:34] LABS: Basophils # 0.1 K/mcL (0.0-0.2); Basophils % 0.3 %; Hematocrit 33.8 % (35.3-44.9); Hemoglobin 10.8 g/dL (11.5-15.4); Immature Platelets 13.9 % (1.1-6.1); Lymphocytes # 0.9 K/mcL (0.6-4.6); Lymphocytes % 6.1 %; Mean Corpuscular Hemoglobin 31.5 pg (28.0-33.3); Mean Corpuscular Volume 98.5 fL (83.0-100.0); Mean Platelet Volume 12.9 fL (9.4-12.4); Monocytes # 1.4 K/mcL (0.0-1.3); Neutrophils # 12.7 K/mcL (1.6-8.9); Platelet Count 115 K/mcL (140-400); Red Blood Count 3.43 M/mcL (3.82-4.97); Segmented Neutrophils % 84.2 %; White Blood Count 15.1 K/mcL (4.3-11.1)
[2021-06-06 03:44] LABS: BUN/Creatinine Ratio 14 (6-26); Blood Urea Nitrogen 10 mg/dL (8-23); Calcium 8.6 mg/dL (8.6-10.3); Carbon Dioxide 19 mEq/L (23-29); Chloride 109 mEq/L (98-107); Glucose 126 mg/dL (70-105); Magnesium 2.3 mg/dL (1.6-2.6); Osmolality,Calculated 283 (280-300); Potassium 4.2 mEq/L (3.5-5.1); Sodium 136 mEq/L (136-145); eGFR For African Americans > 60 (> 60); eGFR For Non-African Americans > 60 (> 60)
[2021-06-06 03:48] LABS: INR 1.2; Prothrombin Time 13.3 Seconds (9.4-12.1)
[2021-06-06] MEDS: *HR* HYDROcodone/Acet 7.5/325 mg TABLET PO PRN ×4 (06:21→19:30)
[2021-06-06] MEDS: niCARdipine 20 MG/200 ML MLS IVC SCH ×2 (06:57→07:10)
[2021-06-06] MEDS: Norepinephrine 4 MG/254 ML IV.SOLN IVC SCH (07:10)
[2021-06-06] MEDS: 0.9 % Sodium Chloride w KCl 20 MEQ/1,000 ML MLS IVC SCH (07:10)
[2021-06-06] MEDS: Pantoprazole 40 MG VIAL IVP SCH (07:43)
[2021-06-06] MEDS: Aspirin Enteric Coated 81 MG Tablet PO SCH (07:44)
[2021-06-06] MEDS: Furosemide 20 MG/2 ML VIAL IVP SCH ×2 (07:44→19:31)
[2021-06-06] MEDS: Chlorhexidine Rinse 15 ML MOUTHWASH MM SCH ×3 (07:44→19:30)
[2021-06-06] MEDS ORDERED: D5% in Water 1,000 ML IVC PRN (08:23)
[2021-06-06] MEDS ORDERED: *HR* Dextrose 50 % in Water (Syg) 50 ML SYRINGE IVP PRN (08:23)
[2021-06-06] MEDS ORDERED: Dextrose Gel 15 GM/37.5 ML TUBE PO PRN ×2 (08:23)
[2021-06-06] MEDS ORDERED: *HR* LORazepam 1 MG TABLET PO PRN (08:24)
[2021-06-06] MEDS: *HR* Heparin 5,000 UNIT/ML VIAL SQ SCH ×2 (08:52→16:16)
[2021-06-06] MEDS: Ranolazine 500 MG TAB.ER.12H PO SCH (09:44)
[2021-06-06] MEDS: Insulin LISPRO 300 UNITS/3 ML VIAL SUBQ SCH ×2 (11:05→15:52)
[2021-06-06] MEDS ORDERED: Insulin LISPRO 300 UNITS/3 ML VIAL SUBQ SCH (21:00)
[2021-06-07 03:21] LABS: Basophils % 0.3 %; Eosinophils % 0.1 %; Hematocrit 30.9 % (35.3-44.9); Hemoglobin 10.1 g/dL (11.5-15.4); Immature Granulocytes % 0.5 % (0-4); Lymphocytes # 1.9 K/mcL (0.6-4.6); Lymphocytes % 12.6 %; Mean Corpuscular HGB Conc 32.7 g/dL (31.6-35.5); Mean Corpuscular Volume 97.8 fL (83.0-100.0); Monocytes # 1.7 K/mcL (0.0-1.3); Monocytes % 11.4 %; Neutrophils # 11.3 K/mcL (1.6-8.9); Platelet Count 121 K/mcL (140-400); Red Blood Count 3.16 M/mcL (3.82-4.97); Red Cell Distribution Width 16.2 % (11.5-14.5); Segmented Neutrophils % 75.1 %; White Blood Count 15.1 K/mcL (4.3-11.1)
[2021-06-07 03:39] LABS: BUN/Creatinine Ratio 17 (6-26); Blood Urea Nitrogen 12 mg/dL (8-23); Calcium 8.9 mg/dL (8.6-10.3); Carbon Dioxide 23 mEq/L (23-29); Chloride 104 mEq/L (98-107); Glucose 110 mg/dL (70-105); Magnesium 1.8 mg/dL (1.6-2.6); Osmolality,Calculated 276 (280-300); Potassium 3.5 mEq/L (3.5-5.1); Sodium 133 mEq/L (136-145); eGFR For African Americans > 60 (> 60); eGFR For Non-African Americans > 60 (> 60)
[2021-06-07] MEDS: *HR* HYDROcodone/Acet 7.5/325 mg TABLET PO PRN ×4 (04:42→20:21)
[2021-06-07] MEDS: Metoclopramide 10 MG/2 ML VIAL IVP SCH ×3 (05:00→17:09)
[2021-06-07] MEDS: *HR* Heparin 5,000 UNIT/ML VIAL SQ SCH ×2 (05:00→17:09)
[2021-06-07] MEDS: Chlorhexidine Rinse 15 ML MOUTHWASH MM SCH ×2 (07:35→20:21)
[2021-06-07] MEDS: Aspirin Enteric Coated 81 MG Tablet PO SCH (07:35)
[2021-06-07] MEDS: Furosemide 20 MG/2 ML VIAL IVP SCH ×2 (07:35→20:21)
[2021-06-07] MEDS: Insulin LISPRO 300 UNITS/3 ML VIAL SUBQ SCH ×4 (08:26→20:00)
[2021-06-07] MEDS ORDERED: Dextrose Gel 15 GM/37.5 ML TUBE PO PRN ×2 (13:51)
[2021-06-07] MEDS ORDERED: Naloxone 0.4 MG/ML INJ IVP PRN (13:51)
[2021-06-07] MEDS ORDERED: *HR* Dextrose 50 % in Water (Syg) 50 ML SYRINGE IVP PRN (13:51)
[2021-06-07] MEDS ORDERED: Ondansetron 4 MG/2 ML VIAL IVP PRN (13:51)
[2021-06-07] MEDS ORDERED: Sennosides 8.6 MG TABLET PO PRN (13:51)
[2021-06-07] MEDS ORDERED: Insulin Regular, Human 100 UNIT/ML IV PRN (13:51)
[2021-06-07] MEDS ORDERED: D5% in Water 1,000 ML IVC PRN (13:51)
[2021-06-07] MEDS ORDERED: Perflutren Lipid Microsphere 1.3 ML in 0.9 % Sodium Chloride 8.7 ML IVP PRN (15:00)
[2021-06-07] MEDS: *HR* Ticagrelor 90 MG TABLET PO SCH (20:22)
[2021-06-07] MEDS ORDERED: *HR* Ticagrelor 90 MG TABLET PO SCH (21:00)
[2021-06-08] MEDS: Metoclopramide 10 MG/2 ML VIAL IVP SCH ×2 (00:16→05:19)
[2021-06-08] MEDS: *HR* HYDROcodone/Acet 7.5/325 mg TABLET PO PRN ×2 (05:18→19:29)
[2021-06-08] MEDS: *HR* Heparin 5,000 UNIT/ML VIAL SQ SCH ×2 (05:19→17:40)
[2021-06-08] MEDS ORDERED: AMIODARONE IVC ONE (05:55)
[2021-06-08] MEDS ORDERED: Amiodarone Premix 150 MG/100 ML BAG IVPB ONE (05:55)
[2021-06-08] MEDS ORDERED: SODIUM CHLORIDE 0.9% IVC ONE (05:55)
[2021-06-08] MEDS ORDERED: Amiodarone 450 MG in 0.9 % Sodium Chloride Excel Bg 241 ML IVC ONE (06:45)
[2021-06-08] MEDS: Insulin LISPRO 300 UNITS/3 ML VIAL SUBQ SCH ×4 (07:52→20:46)
[2021-06-08] MEDS: Aspirin Enteric Coated 81 MG Tablet PO SCH (08:33)
[2021-06-08] MEDS: *HR* Ticagrelor 90 MG TABLET PO SCH ×2 (08:33→20:58)
[2021-06-08] MEDS: Chlorhexidine Rinse 15 ML MOUTHWASH MM SCH ×2 (08:34→20:57)
[2021-06-08] MEDS: Furosemide 20 MG/2 ML VIAL IVP SCH ×3 (08:34→20:57)
[2021-06-08 11:43] LABS: Basophils # 0.1 K/mcL (0.0-0.2); Basophils % 0.3 %; Eosinophils # 0.1 K/mcL (0.0-0.6); Eosinophils % 0.3 %; Hematocrit 32.4 % (35.3-44.9); Hemoglobin 10.5 g/dL (11.5-15.4); Immature Granulocytes % 0.6 % (0-4); Lymphocytes # 3.1 K/mcL (0.6-4.6); Mean Corpuscular HGB Conc 32.4 g/dL (31.6-35.5); Mean Corpuscular Hemoglobin 31.7 pg (28.0-33.3); Mean Corpuscular Volume 97.9 fL (83.0-100.0); Mean Platelet Volume 12.2 fL (9.4-12.4); Monocytes # 1.9 K/mcL (0.0-1.3); Monocytes % 9.7 %; Neutrophils # 14.1 K/mcL (1.6-8.9); Platelet Count 159 K/mcL (140-400); Red Blood Count 3.31 M/mcL (3.82-4.97); Red Cell Distribution Width 15.7 % (11.5-14.5); Segmented Neutrophils % 73.1 %; White Blood Count 19.3 K/mcL (4.3-11.1)
[2021-06-08] MEDS ORDERED: Amiodarone 450 MG in 0.9 % Sodium Chloride Excel Bg 241 ML IVC SCH (11:56)
[2021-06-08 12:00] LABS: BUN/Creatinine Ratio 20 (6-26); Blood Urea Nitrogen 16 mg/dL (8-23); Calcium 8.4 mg/dL (8.6-10.3); Carbon Dioxide 25 mEq/L (23-29); Chloride 99 mEq/L (98-107); Glucose 92 mg/dL (70-105); Magnesium 1.9 mg/dL (1.6-2.6); Osmolality,Calculated 275 (280-300); Potassium 3.8 mEq/L (3.5-5.1); Sodium 132 mEq/L (136-145); eGFR For African Americans > 60 (> 60); eGFR For Non-African Americans > 60 (> 60)
[2021-06-08] MEDS ORDERED: AMOXICILLIN PO SCH (15:00)
[2021-06-08] MEDS ORDERED: [UNRECOGNIZED DRUG - OTHER] PO SCH (15:00)
[2021-06-08] MEDS: *HR* LORazepam 1 MG TABLET PO PRN (19:29)
[2021-06-08] MEDS: Amoxicillin/Clavulanate 500 MG TABLET PO SCH (20:57)
[2021-06-08] MEDS: *HR* Amiodarone 200 MG TABLET PO SCH (20:58)
[2021-06-09] MEDS: *HR* Heparin 5,000 UNIT/ML VIAL SQ SCH ×2 (06:03→16:49)
[2021-06-09 07:00] LABS: Basophils % 0.2 %; Eosinophils # 0.1 K/mcL (0.0-0.6); Eosinophils % 0.4 %; Hematocrit 30.4 % (35.3-44.9); Immature Granulocytes % 0.7 % (0-4); Lymphocytes # 1.8 K/mcL (0.6-4.6); Lymphocytes % 11.4 %; Mean Corpuscular HGB Conc 32.9 g/dL (31.6-35.5); Mean Corpuscular Hemoglobin 31.9 pg (28.0-33.3); Mean Corpuscular Volume 97.1 fL (83.0-100.0); Mean Platelet Volume 11.6 fL (9.4-12.4); Monocytes # 1.5 K/mcL (0.0-1.3); Monocytes % 9.7 %; Neutrophils # 12.1 K/mcL (1.6-8.9); Platelet Count 205 K/mcL (140-400); Red Blood Count 3.13 M/mcL (3.82-4.97); Red Cell Distribution Width 15.7 % (11.5-14.5); Segmented Neutrophils % 77.6 %; White Blood Count 15.5 K/mcL (4.3-11.1)
[2021-06-09 07:17] LABS: BUN/Creatinine Ratio 22 (6-26); Blood Urea Nitrogen 17 mg/dL (8-23); Calcium 8.6 mg/dL (8.6-10.3); Carbon Dioxide 25 mEq/L (23-29); Chloride 100 mEq/L (98-107); Glucose 103 mg/dL (70-105); Magnesium 1.9 mg/dL (1.6-2.6); Osmolality,Calculated 276 (280-300); Sodium 132 mEq/L (136-145); eGFR For African Americans > 60 (> 60); eGFR For Non-African Americans > 60 (> 60)
[2021-06-09] MEDS: *HR* Ticagrelor 90 MG TABLET PO SCH ×2 (08:03→20:43)
[2021-06-09] MEDS: Aspirin Enteric Coated 81 MG Tablet PO SCH (08:03)
[2021-06-09] MEDS: Amoxicillin/Clavulanate 500 MG TABLET PO SCH ×3 (08:03→20:43)
[2021-06-09] MEDS: *HR* Amiodarone 200 MG TABLET PO SCH ×2 (08:04→20:42)
[2021-06-09] MEDS: Furosemide 20 MG/2 ML VIAL IVP SCH ×2 (08:04→20:44)
[2021-06-09] MEDS: Insulin LISPRO 300 UNITS/3 ML VIAL SUBQ SCH ×4 (08:05→20:44)
[2021-06-09] MEDS: Chlorhexidine Rinse 15 ML MOUTHWASH MM SCH ×2 (08:05→20:43)
[2021-06-09] MEDS: *HR* LORazepam 1 MG TABLET PO PRN (08:09)
[2021-06-09] MEDS: *HR* HYDROcodone/Acet 7.5/325 mg TABLET PO PRN ×2 (08:09→16:49)
[2021-06-10] MEDS: *HR* HYDROcodone/Acet 7.5/325 mg TABLET PO PRN (05:57)
[2021-06-10] MEDS: *HR* Heparin 5,000 UNIT/ML VIAL SQ SCH ×2 (05:58→17:13)
[2021-06-10 06:29] LABS: Basophils # 0.1 K/mcL (0.0-0.2); Basophils % 0.5 %; Eosinophils # 0.2 K/mcL (0.0-0.6); Eosinophils % 1.4 %; Hematocrit 28.8 % (35.3-44.9); Hemoglobin 9.6 g/dL (11.5-15.4); Immature Granulocytes % 0.6 % (0-4); Lymphocytes # 1.5 K/mcL (0.6-4.6); Lymphocytes % 14.2 %; Mean Corpuscular HGB Conc 33.3 g/dL (31.6-35.5); Mean Corpuscular Hemoglobin 32.2 pg (28.0-33.3); Mean Corpuscular Volume 96.6 fL (83.0-100.0); Mean Platelet Volume 11.4 fL (9.4-12.4); Monocytes # 1.1 K/mcL (0.0-1.3); Monocytes % 10.4 %; Neutrophils # 7.8 K/mcL (1.6-8.9); Platelet Count 231 K/mcL (140-400); Red Blood Count 2.98 M/mcL (3.82-4.97); Red Cell Distribution Width 15.6 % (11.5-14.5); Segmented Neutrophils % 72.9 %; White Blood Count 10.7 K/mcL (4.3-11.1)
[2021-06-10 06:49] LABS: BUN/Creatinine Ratio 23 (6-26); Blood Urea Nitrogen 18 mg/dL (8-23); Calcium 8.6 mg/dL (8.6-10.3); Carbon Dioxide 24 mEq/L (23-29); Chloride 100 mEq/L (98-107); Glucose 101 mg/dL (70-105); Magnesium 1.9 mg/dL (1.6-2.6); Osmolality,Calculated 280 (280-300); Potassium 4.3 mEq/L (3.5-5.1); Sodium 134 mEq/L (136-145); eGFR For African Americans > 60 (> 60); eGFR For Non-African Americans > 60 (> 60)
[2021-06-10] MEDS: Insulin LISPRO 300 UNITS/3 ML VIAL SUBQ SCH ×4 (07:47→23:17)
[2021-06-10] MEDS: Chlorhexidine Rinse 15 ML MOUTHWASH MM SCH ×2 (08:32→19:50)
[2021-06-10] MEDS: Furosemide 20 MG/2 ML VIAL IVP SCH ×2 (08:32→19:50)
[2021-06-10] MEDS: *HR* LORazepam 1 MG TABLET PO PRN (08:32)
[2021-06-10] MEDS: Amoxicillin/Clavulanate 500 MG TABLET PO SCH ×3 (08:33→19:52)
[2021-06-10] MEDS: *HR* Ticagrelor 90 MG TABLET PO SCH ×2 (08:33→19:50)
[2021-06-10] MEDS: Aspirin Enteric Coated 81 MG Tablet PO SCH (08:33)
[2021-06-10] MEDS: *HR* Amiodarone 200 MG TABLET PO SCH ×2 (08:34→19:50)
[2021-06-11] MEDS: *HR* Heparin 5,000 UNIT/ML VIAL SQ SCH ×2 (05:25→17:00)
[2021-06-11] MEDS: Insulin LISPRO 300 UNITS/3 ML VIAL SUBQ SCH ×4 (08:39→20:59)
[2021-06-11] MEDS: Furosemide 20 MG/2 ML VIAL IVP SCH (08:47)
[2021-06-11] MEDS: Chlorhexidine Rinse 15 ML MOUTHWASH MM SCH ×2 (08:47→21:00)
[2021-06-11] MEDS: *HR* Amiodarone 200 MG TABLET PO SCH ×2 (08:48→20:59)
[2021-06-11] MEDS: *HR* Ticagrelor 90 MG TABLET PO SCH ×2 (08:49→20:59)
[2021-06-11] MEDS: Aspirin Enteric Coated 81 MG Tablet PO SCH (08:49)
[2021-06-11] MEDS: Amoxicillin/Clavulanate 500 MG TABLET PO SCH ×2 (08:49→16:58)
[2021-06-11] MEDS: *HR* HYDROcodone/Acet 7.5/325 mg TABLET PO PRN (09:35)
[2021-06-12] MEDS: *HR* HYDROcodone/Acet 7.5/325 mg TABLET PO PRN ×3 (04:15→20:53)
[2021-06-12 04:35] LABS: Hematocrit 28.2 % (35.3-44.9); Hemoglobin 9.3 g/dL (11.5-15.4); Mean Corpuscular Volume 96.9 fL (83.0-100.0); Mean Platelet Volume 11.6 fL (9.4-12.4); Platelet Count 285 K/mcL (140-400); Red Blood Count 2.91 M/mcL (3.82-4.97); Red Cell Distribution Width 15.2 % (11.5-14.5); White Blood Count 10.2 K/mcL (4.3-11.1)
[2021-06-12 04:51] LABS: BUN/Creatinine Ratio 20 (6-26); Blood Urea Nitrogen 15 mg/dL (8-23); Calcium 8.3 mg/dL (8.6-10.3); Carbon Dioxide 24 mEq/L (23-29); Chloride 100 mEq/L (98-107); Glucose 87 mg/dL (70-105); Magnesium 1.9 mg/dL (1.6-2.6); Osmolality,Calculated 274 (280-300); Sodium 132 mEq/L (136-145); eGFR For African Americans > 60 (> 60); eGFR For Non-African Americans > 60 (> 60)
[2021-06-12] MEDS: *HR* Heparin 5,000 UNIT/ML VIAL SQ SCH ×2 (05:35→17:25)
[2021-06-12] MEDS: Insulin LISPRO 300 UNITS/3 ML VIAL SUBQ SCH ×3 (08:01→15:49)
[2021-06-12] MEDS: Aspirin Enteric Coated 81 MG Tablet PO SCH (08:10)
[2021-06-12] MEDS: *HR* Ticagrelor 90 MG TABLET PO SCH (08:11)
[2021-06-12] MEDS: Chlorhexidine Rinse 15 ML MOUTHWASH MM SCH (08:11)
[2021-06-12] MEDS: *HR* Amiodarone 200 MG TABLET PO SCH (08:11)
[2021-06-12 17:13] LABS: Adenovirus Not Detected (Not Detect); Bordetella Pertussis Not Detected (Not Detect); Chlamydophila pneumoniae Not Detected (Not Detect); Coronavirus 229E Not Detected (Not Detect); Coronavirus HKU1 Not Detected (Not Detect); Coronavirus NL63 Not Detected (Not Detect); Coronavirus OC43 Not Detected (Not Detect); Human Metapneumovirus Not Detected (Not Detect); Human Rhinovirus/Enterovirus Not Detected (Not Detect); Influenza A Subtype 2009 H1 Not Detected (Not Detect); Influenza B Not Detected (Not Detect); Mycoplasma pneumoniae Not Detected (Not Detect); Parainfluenza Virus 1 Not Detected (Not Detect); Parainfluenza Virus 2 Not Detected (Not Detect); Parainfluenza Virus 3 Not Detected (Not Detect); Parainfluenza Virus 4 Not Detected (Not Detect); Respiratory Syncytial Virus Not Detected (Not Detect); SARS-CoV-2 Not Detected (Not Detect)
[2021-06-12 19:21] VITALS: BP 139/35; PULSE 80; TEMP 97.6
[2021-06-12 19:55] VITALS: O2SAT 95
== END 2021-06-12 21:07 | DRG 234 ==
LOC: 3BNU 20:57 → EMEROOARM 20:57 → SUATTDRO 05-27 02:05 → 3BNU 05-27 02:25 → SUATTDRO 05-29 09:43 → ICNU 06-04 21:32 → 2NNU 06-07 17:37
PROVIDERS: ADMIT Internal Medicine; ATTEND Internal Medicine

== ENCOUNTER 2021-08-26 10:03 | Inpatient (IN) ==
[2021-08-26 11:50] LABS: Basophils % 0.4 %; Eosinophils # 0.1 K/mcL (0.0-0.6); Eosinophils % 0.8 %; Hematocrit 32.7 % (35.3-44.9); Hemoglobin 10.2 g/dL (11.5-15.4); Immature Granulocytes % 0.6 % (0-4); Lymphocytes # 1.3 K/mcL (0.6-4.6); Lymphocytes % 14.3 %; Mean Corpuscular HGB Conc 31.2 g/dL (31.6-35.5); Mean Corpuscular Hemoglobin 29.9 pg (28.0-33.3); Mean Corpuscular Volume 95.9 fL (83.0-100.0); Mean Platelet Volume 11.8 fL (9.4-12.4); Monocytes % 10.3 %; Neutrophils # 6.8 K/mcL (1.6-8.9); Platelet Count 283 K/mcL (140-400); Red Blood Count 3.41 M/mcL (3.82-4.97); Red Cell Distribution Width 17.7 % (11.5-14.5); Segmented Neutrophils % 73.6 %; White Blood Count 9.3 K/mcL (4.3-11.1)
[2021-08-26 12:12] LABS: BUN/Creatinine Ratio 21 (6-26); Blood Urea Nitrogen 18 mg/dL (8-23); Calcium 8.6 mg/dL (8.6-10.3); Carbon Dioxide 27 mEq/L (23-29); Chloride 100 mEq/L (98-107); Glucose 108 mg/dL (70-105); Osmolality,Calculated 276 (280-300); Potassium 3.6 mEq/L (3.5-5.1); Sodium 132 mEq/L (136-145); eGFR For African Americans > 60 (> 60); eGFR For Non-African Americans > 60 (> 60)
[2021-08-26 12:19] LABS: Troponin I < 0.03 ng/mL (< 0.04)
[2021-08-26 12:25] LABS: Bacteria,Urine Few per hpf (None-Few); Bilirubin,Urine Negative (Negative); Blood,Urine Negative (Negative); Clarity,Urine Turbid (Clear); Color,Urine Yellow (Yellow); Glucose,Urine (UA) Normal (Normal); Ketones,Urine Negative (Negative); Leukocyte Esterase,Urine Small (Negative); Mucus,Urine Few per lpf (None-Few); Nitrite,Urine Positive (Negative); Protein,Urine Negative (Neg-Trace); RBC,Urine 0-3 per hpf (0-3); Specific Gravity,Urine 1.014 (1.010-1.025)
[2021-08-26 12:26] LABS: INR 1.1; Prothrombin Time 12.7 Seconds (9.4-12.1)
[2021-08-26 12:29] LABS: Activated Partial Thrombo Time 30.8 Seconds (26.0-36.0)
[2021-08-26] MEDS ORDERED: CeFAZolin 2,000 MG/120 ML BAG IVPB ONE (12:37)
[2021-08-26] MEDS ORDERED: Naloxone 0.4 MG/ML INJ IVP PRN (13:22)
[2021-08-26] MEDS ORDERED: Acetaminophen 325 MG TABLET PO PRN (14:42)
[2021-08-26] MEDS ORDERED: Ketorolac 30 MG/ML VIAL IVP PRN (14:42)
[2021-08-26] MEDS ORDERED: *HR* HYDROcodone/Acet 5/325 mg TABLET PO PRN (14:42)
[2021-08-26] MEDS ORDERED: *HR* LORazepam 1 MG TABLET PO PRN (17:20)
[2021-08-26] MEDS ORDERED: Nitroglycerin 0.4 MG TAB.SUBL SL PRN (17:20)
[2021-08-26] MEDS: Primidone 50 MG TABLET PO SCH (22:12)
[2021-08-26] MEDS: Ranolazine 500 MG TAB.ER.12H PO SCH (22:12)
[2021-08-26] MEDS: Gabapentin 400 MG CAPSULE PO SCH (22:12)
[2021-08-27 07:50] LABS: Basophils # 0.1 K/mcL (0.0-0.2); Basophils % 0.8 %; Eosinophils # 0.1 K/mcL (0.0-0.6); Eosinophils % 2.1 %; Hemoglobin 9.5 g/dL (11.5-15.4); Immature Granulocytes % 0.3 % (0-4); Lymphocytes # 2.3 K/mcL (0.6-4.6); Lymphocytes % 34.6 %; Mean Corpuscular HGB Conc 31.7 g/dL (31.6-35.5); Mean Corpuscular Hemoglobin 30.1 pg (28.0-33.3); Mean Corpuscular Volume 94.9 fL (83.0-100.0); Monocytes # 0.6 K/mcL (0.0-1.3); Monocytes % 9.8 %; Neutrophils # 3.4 K/mcL (1.6-8.9); Platelet Count 263 K/mcL (140-400); Red Blood Count 3.16 M/mcL (3.82-4.97); Red Cell Distribution Width 17.4 % (11.5-14.5); Segmented Neutrophils % 52.4 %; White Blood Count 6.5 K/mcL (4.3-11.1)
[2021-08-27 07:53] LABS: BUN/Creatinine Ratio 23 (6-26); Blood Urea Nitrogen 18 mg/dL (8-23); Calcium 8.2 mg/dL (8.6-10.3); Carbon Dioxide 24 mEq/L (23-29); Chloride 98 mEq/L (98-107); Glucose 83 mg/dL (70-105); Osmolality,Calculated 265 (280-300); Sodium 127 mEq/L (136-145); eGFR For African Americans > 60 (> 60); eGFR For Non-African Americans > 60 (> 60)
[2021-08-27] MEDS ORDERED: Isosorbide MONOnitrate (24 HR) 30 MG TAB.ER.24H PO SCH (09:00)
[2021-08-27] MEDS ORDERED: *HR* Amiodarone 200 MG TABLET PO SCH (09:00)
[2021-08-27] MEDS ORDERED: Aspirin 81 MG TAB.CHEW PO SCH (09:00)
[2021-08-27] MEDS ORDERED: Furosemide 20 MG TABLET PO SCH (09:00)
[2021-08-27] MEDS: Gabapentin 400 MG CAPSULE PO SCH ×2 (10:04→20:03)
[2021-08-27] MEDS: Primidone 50 MG TABLET PO SCH ×2 (10:04→20:04)
[2021-08-27] MEDS: Ranolazine 500 MG TAB.ER.12H PO SCH ×2 (10:05→20:04)
[2021-08-27] MEDS ORDERED: CeFAZolin Syr 2,000MG/20 ML 2,000 MG/20 ML SYRINGE IVPB ONE (12:08)
[2021-08-27] MEDS ORDERED: Ondansetron 4 MG/2 ML VIAL ONE (12:09)
[2021-08-27] MEDS ORDERED: Lidocaine -MPF 2% 2 ML VIAL ONE (12:09)
[2021-08-27] MEDS ORDERED: *HR* FentaNYL (PF) 100 MCG/2 ML VIAL ONE (12:09)
[2021-08-27] MEDS ORDERED: ROPIVACAINE/PF/NS 0.25% 1 EACH SYRINGE INTRAART ONE ×2 (12:09→12:10)
[2021-08-27] MEDS ORDERED: *HR* Propofol 200 MG/20 ML VIAL IVP ONE (12:09)
[2021-08-27] MEDS ORDERED: Ringers Solution, Lactated 1,000 ML IVC SCH (12:15)
[2021-08-27] MEDS ORDERED: *HR* FentaNYL (PF) 100 MCG/2 ML VIAL IVP PRN (12:51)
[2021-08-27] MEDS ORDERED: Acetaminophen 325 MG TABLET PO PRN (14:26)
[2021-08-27] MEDS ORDERED: Nitroglycerin 0.4 MG TAB.SUBL SL PRN (14:26)
[2021-08-27] MEDS ORDERED: Naloxone 0.4 MG/ML INJ IVP PRN (14:26)
[2021-08-27] MEDS ORDERED: Ketorolac 30 MG/ML VIAL IVP PRN (14:26)
[2021-08-27] MEDS: cefTRIAXone 1,000 MG in 0.9 % Sodium Chloride 10 ML IVP SCH (20:45)
[2021-08-27] MEDS: Ringers Solution, Lactated 1,000 ML IVC SCH (22:11)
[2021-08-28 07:40] LABS: Basophils % 0.1 %; Hematocrit 27.6 % (35.3-44.9); Hemoglobin 8.9 g/dL (11.5-15.4); Immature Granulocytes % 0.4 % (0-4); Lymphocytes % 12.3 %; Mean Corpuscular HGB Conc 32.2 g/dL (31.6-35.5); Mean Corpuscular Hemoglobin 30.2 pg (28.0-33.3); Mean Corpuscular Volume 93.6 fL (83.0-100.0); Mean Platelet Volume 11.9 fL (9.4-12.4); Monocytes # 0.6 K/mcL (0.0-1.3); Monocytes % 7.3 %; Neutrophils # 6.6 K/mcL (1.6-8.9); Platelet Count 280 K/mcL (140-400); Red Blood Count 2.95 M/mcL (3.82-4.97); Red Cell Distribution Width 17.2 % (11.5-14.5); Segmented Neutrophils % 79.9 %; White Blood Count 8.3 K/mcL (4.3-11.1)
[2021-08-28] MEDS: Primidone 50 MG TABLET PO SCH ×2 (08:05→20:45)
[2021-08-28] MEDS: Isosorbide MONOnitrate (24 HR) 30 MG TAB.ER.24H PO SCH (08:05)
[2021-08-28] MEDS: Gabapentin 400 MG CAPSULE PO SCH ×2 (08:06→20:45)
[2021-08-28] MEDS: Ranolazine 500 MG TAB.ER.12H PO SCH ×2 (08:07→20:45)
[2021-08-28] MEDS: Aspirin 81 MG TAB.CHEW PO SCH (08:07)
[2021-08-28] MEDS: Furosemide 40 MG TABLET PO SCH (08:07)
[2021-08-28] MEDS: *HR* Amiodarone 200 MG TABLET PO SCH (08:07)
[2021-08-28 11:29] LABS: Folate 8.3 ng/mL (3.0-16.0)
[2021-08-28 13:29] LABS: % Iron Saturation 6 % (15-50); Alanine Aminotransferase 20 Units/L (7-52); Albumin 2.8 g/dL (3.5-5.7); Albumin/Globulin Ratio 1.2 (1.1-2.2); Alkaline Phosphatase 80 Units/L (34-104); Aspartate Amino Transferase 31 Units/L (13-39); BUN/Creatinine Ratio 27 (6-26); Bilirubin,Direct 0.1 mg/dL (0.0-0.2); Bilirubin,Indirect 0.2 mg/dL (0.0-1.0); Bilirubin,Total 0.3 mg/dL (0.3-1.0); Blood Urea Nitrogen 25 mg/dL (8-23); Calcium 8.5 mg/dL (8.6-10.3); Carbon Dioxide 22 mEq/L (23-29); Chloride 101 mEq/L (98-107); Ferritin 103 ng/mL (10-120); Globulin 2.4 g/dL (2.4-3.5); Glucose 110 mg/dL (70-105); Iron 18 mcg/dL (50-170); Magnesium 1.9 mg/dL (1.6-2.6); Osmolality,Calculated 281 (280-300); Potassium 4.2 mEq/L (3.5-5.1); Sodium 133 mEq/L (136-145); Thyroid Stimulating Hormone 0.466 mcIU/mL (0.340-5.600); Total Protein 5.2 g/dL (6.4-8.9); Transferrin 203 mg/dL (203-362); eGFR For African Americans > 60 (> 60); eGFR For Non-African Americans 59 (> 60)
[2021-08-28] MEDS: Ringers Solution, Lactated 1,000 ML IVC SCH (14:32)
[2021-08-28] MEDS: *HR* HYDROcodone/Acet 5/325 mg TABLET PO PRN (14:32)
[2021-08-28] MEDS: cefTRIAXone 1,000 MG in 0.9 % Sodium Chloride 10 ML IVP SCH (20:45)
[2021-08-29 07:30] LABS: Basophils % 0.2 %; Eosinophils # 0.1 K/mcL (0.0-0.6); Eosinophils % 0.8 %; Hematocrit 26.6 % (35.3-44.9); Hemoglobin 8.6 g/dL (11.5-15.4); Immature Granulocytes % 0.5 % (0-4); Lymphocytes # 2.5 K/mcL (0.6-4.6); Lymphocytes % 28.1 %; Mean Corpuscular HGB Conc 32.3 g/dL (31.6-35.5); Mean Corpuscular Hemoglobin 30.6 pg (28.0-33.3); Mean Corpuscular Volume 94.7 fL (83.0-100.0); Mean Platelet Volume 11.8 fL (9.4-12.4); Monocytes # 0.8 K/mcL (0.0-1.3); Monocytes % 9.3 %; Neutrophils # 5.4 K/mcL (1.6-8.9); Platelet Count 258 K/mcL (140-400); Red Blood Count 2.81 M/mcL (3.82-4.97); Red Cell Distribution Width 17.5 % (11.5-14.5); Segmented Neutrophils % 61.1 %; White Blood Count 8.8 K/mcL (4.3-11.1)
[2021-08-29 07:58] LABS: BUN/Creatinine Ratio 27 (6-26); Blood Urea Nitrogen 23 mg/dL (8-23); Calcium 8.1 mg/dL (8.6-10.3); Carbon Dioxide 27 mEq/L (23-29); Chloride 99 mEq/L (98-107); Glucose 92 mg/dL (70-105); Magnesium 1.8 mg/dL (1.6-2.6); Osmolality,Calculated 271 (280-300); Sodium 129 mEq/L (136-145); eGFR For African Americans > 60 (> 60); eGFR For Non-African Americans > 60 (> 60)
[2021-08-29] MEDS: Ranolazine 500 MG TAB.ER.12H PO SCH ×2 (09:39→20:21)
[2021-08-29] MEDS: Primidone 50 MG TABLET PO SCH ×2 (09:39→20:21)
[2021-08-29] MEDS: Gabapentin 400 MG CAPSULE PO SCH ×2 (09:40→20:22)
[2021-08-29] MEDS: *HR* Amiodarone 200 MG TABLET PO SCH (09:40)
[2021-08-29] MEDS: Furosemide 40 MG TABLET PO SCH (09:40)
[2021-08-29] MEDS: Cyanocobalamin (B-12) 1,000 MCG TABLET PO SCH (09:40)
[2021-08-29] MEDS: Isosorbide MONOnitrate (24 HR) 30 MG TAB.ER.24H PO SCH (09:40)
[2021-08-29] MEDS: Aspirin 81 MG TAB.CHEW PO SCH (09:40)
[2021-08-29] MEDS ORDERED: Iron Sucrose Complex 200 MG in 0.9 % Sodium Chloride 100 ML IVPB ONE (16:59)
[2021-08-29] MEDS: cefTRIAXone 1,000 MG in 0.9 % Sodium Chloride 10 ML IVP SCH (20:22)
[2021-08-30] MEDS: *HR* LORazepam 1 MG TABLET PO PRN ×2 (00:44→23:34)
[2021-08-30] MEDS ORDERED: Methyl Salicylate/Menthol 85 APPL/85 GM TUBE TP PRN (01:31)
[2021-08-30 06:31] LABS: Basophils # 0.1 K/mcL (0.0-0.2); Basophils % 0.6 %; Eosinophils # 0.1 K/mcL (0.0-0.6); Eosinophils % 1.4 %; Hematocrit 28.4 % (35.3-44.9); Hemoglobin 9.3 g/dL (11.5-15.4); Immature Granulocytes % 0.6 % (0-4); Lymphocytes # 2.2 K/mcL (0.6-4.6); Lymphocytes % 25.4 %; Mean Corpuscular HGB Conc 32.7 g/dL (31.6-35.5); Mean Corpuscular Hemoglobin 30.9 pg (28.0-33.3); Mean Corpuscular Volume 94.4 fL (83.0-100.0); Mean Platelet Volume 11.5 fL (9.4-12.4); Monocytes # 0.9 K/mcL (0.0-1.3); Neutrophils # 5.4 K/mcL (1.6-8.9); Platelet Count 263 K/mcL (140-400); Red Blood Count 3.01 M/mcL (3.82-4.97); Red Cell Distribution Width 17.6 % (11.5-14.5); White Blood Count 8.7 K/mcL (4.3-11.1)
[2021-08-30 06:52] LABS: BUN/Creatinine Ratio 28 (6-26); Blood Urea Nitrogen 21 mg/dL (8-23); Calcium 8.1 mg/dL (8.6-10.3); Carbon Dioxide 26 mEq/L (23-29); Chloride 101 mEq/L (98-107); Glucose 94 mg/dL (70-105); Magnesium 1.9 mg/dL (1.6-2.6); Osmolality,Calculated 277 (280-300); Potassium 4.2 mEq/L (3.5-5.1); Sodium 132 mEq/L (136-145); eGFR For African Americans > 60 (> 60); eGFR For Non-African Americans > 60 (> 60)
[2021-08-30] MEDS: *HR* Amiodarone 200 MG TABLET PO SCH (09:34)
[2021-08-30] MEDS: Primidone 50 MG TABLET PO SCH ×2 (09:34→19:52)
[2021-08-30] MEDS: Aspirin 81 MG TAB.CHEW PO SCH (09:34)
[2021-08-30] MEDS: Isosorbide MONOnitrate (24 HR) 30 MG TAB.ER.24H PO SCH (09:35)
[2021-08-30] MEDS: Ranolazine 500 MG TAB.ER.12H PO SCH ×2 (09:35→19:52)
[2021-08-30] MEDS: Cyanocobalamin (B-12) 1,000 MCG TABLET PO SCH (09:35)
[2021-08-30] MEDS: Furosemide 40 MG TABLET PO SCH (09:35)
[2021-08-30] MEDS: Gabapentin 400 MG CAPSULE PO SCH ×2 (09:36→19:52)
[2021-08-30] MEDS: cefTRIAXone 1,000 MG in 0.9 % Sodium Chloride 10 ML IVP SCH (20:05)
[2021-08-30] MEDS: *HR* HYDROcodone/Acet 5/325 mg TABLET PO PRN (23:34)
[2021-08-31] MEDS: Ringers Solution, Lactated 1,000 ML IVC SCH (07:34)
[2021-08-31] MEDS: Primidone 50 MG TABLET PO SCH ×2 (08:04→19:22)
[2021-08-31] MEDS: Aspirin 81 MG TAB.CHEW PO SCH (08:05)
[2021-08-31] MEDS: Gabapentin 400 MG CAPSULE PO SCH ×2 (08:05→19:23)
[2021-08-31] MEDS: Furosemide 40 MG TABLET PO SCH (08:05)
[2021-08-31] MEDS: Isosorbide MONOnitrate (24 HR) 30 MG TAB.ER.24H PO SCH (08:05)
[2021-08-31] MEDS: Ranolazine 500 MG TAB.ER.12H PO SCH ×2 (08:05→19:23)
[2021-08-31] MEDS: Cyanocobalamin (B-12) 1,000 MCG TABLET PO SCH (08:06)
[2021-08-31] MEDS: *HR* Amiodarone 200 MG TABLET PO SCH (08:06)
[2021-08-31 13:54] LABS: Basophils # 0.1 K/mcL (0.0-0.2); Basophils % 0.6 %; Eosinophils # 0.1 K/mcL (0.0-0.6); Eosinophils % 1.6 %; Hematocrit 27.3 % (35.3-44.9); Hemoglobin 8.9 g/dL (11.5-15.4); Immature Granulocytes % 0.4 % (0-4); Lymphocytes # 1.7 K/mcL (0.6-4.6); Lymphocytes % 20.9 %; Mean Corpuscular HGB Conc 32.6 g/dL (31.6-35.5); Mean Corpuscular Hemoglobin 31.1 pg (28.0-33.3); Mean Corpuscular Volume 95.5 fL (83.0-100.0); Mean Platelet Volume 11.5 fL (9.4-12.4); Monocytes # 0.6 K/mcL (0.0-1.3); Monocytes % 8.1 %; Neutrophils # 5.4 K/mcL (1.6-8.9); Platelet Count 306 K/mcL (140-400); Red Blood Count 2.86 M/mcL (3.82-4.97); Red Cell Distribution Width 17.6 % (11.5-14.5); Segmented Neutrophils % 68.4 %; White Blood Count 7.9 K/mcL (4.3-11.1)
[2021-08-31 14:14] LABS: BUN/Creatinine Ratio 24 (6-26); Blood Urea Nitrogen 17 mg/dL (8-23); Calcium 8.2 mg/dL (8.6-10.3); Carbon Dioxide 29 mEq/L (23-29); Chloride 97 mEq/L (98-107); Glucose 98 mg/dL (70-105); Magnesium 1.8 mg/dL (1.6-2.6); Osmolality,Calculated 280 (280-300); Potassium 4.3 mEq/L (3.5-5.1); Sodium 134 mEq/L (136-145); eGFR For African Americans > 60 (> 60); eGFR For Non-African Americans > 60 (> 60)
[2021-08-31] MEDS: cefTRIAXone 1,000 MG in 0.9 % Sodium Chloride 10 ML IVP SCH (20:21)
[2021-09-01 03:54] LABS: Basophils % 0.5 %; Eosinophils # 0.1 K/mcL (0.0-0.6); Eosinophils % 1.5 %; Hemoglobin 8.7 g/dL (11.5-15.4); Immature Granulocytes % 0.5 % (0-4); Lymphocytes # 2.1 K/mcL (0.6-4.6); Lymphocytes % 25.5 %; Mean Corpuscular HGB Conc 32.2 g/dL (31.6-35.5); Mean Corpuscular Hemoglobin 30.5 pg (28.0-33.3); Mean Corpuscular Volume 94.7 fL (83.0-100.0); Mean Platelet Volume 11.5 fL (9.4-12.4); Monocytes # 0.7 K/mcL (0.0-1.3); Monocytes % 8.2 %; Neutrophils # 5.4 K/mcL (1.6-8.9); Platelet Count 322 K/mcL (140-400); Red Blood Count 2.85 M/mcL (3.82-4.97); Red Cell Distribution Width 17.5 % (11.5-14.5); Segmented Neutrophils % 63.8 %; White Blood Count 8.4 K/mcL (4.3-11.1)
[2021-09-01 04:14] LABS: BUN/Creatinine Ratio 24 (6-26); Blood Urea Nitrogen 16 mg/dL (8-23); Calcium 8.3 mg/dL (8.6-10.3); Carbon Dioxide 28 mEq/L (23-29); Chloride 96 mEq/L (98-107); Glucose 99 mg/dL (70-105); Magnesium 1.8 mg/dL (1.6-2.6); Osmolality,Calculated 277 (280-300); Potassium 4.1 mEq/L (3.5-5.1); Sodium 133 mEq/L (136-145); eGFR For African Americans > 60 (> 60); eGFR For Non-African Americans > 60 (> 60)
[2021-09-01] MEDS: Isosorbide MONOnitrate (24 HR) 30 MG TAB.ER.24H PO SCH (08:13)
[2021-09-01] MEDS: Primidone 50 MG TABLET PO SCH (08:14)
[2021-09-01] MEDS: Ranolazine 500 MG TAB.ER.12H PO SCH (08:14)
[2021-09-01] MEDS: Aspirin 81 MG TAB.CHEW PO SCH (08:14)
[2021-09-01] MEDS: *HR* Amiodarone 200 MG TABLET PO SCH (08:14)
[2021-09-01] MEDS: Furosemide 40 MG TABLET PO SCH (08:14)
[2021-09-01] MEDS: Gabapentin 400 MG CAPSULE PO SCH (08:14)
[2021-09-01] MEDS: Cyanocobalamin (B-12) 1,000 MCG TABLET PO SCH (08:14)
[2021-09-01 08:28] VITALS: BP 120/62; PULSE 68; TEMP 98.2; O2SAT 96
[2021-09-01 12:55] LABS: Adenovirus Not Detected (Not Detect); Bordetella Pertussis Not Detected (Not Detect); Chlamydophila pneumoniae Not Detected (Not Detect); Coronavirus 229E Not Detected (Not Detect); Coronavirus HKU1 Not Detected (Not Detect); Coronavirus NL63 Not Detected (Not Detect); Coronavirus OC43 Not Detected (Not Detect); Human Metapneumovirus Not Detected (Not Detect); Human Rhinovirus/Enterovirus Not Detected (Not Detect); Influenza A Subtype 2009 H1 Not Detected (Not Detect); Influenza B Not Detected (Not Detect); Mycoplasma pneumoniae Not Detected (Not Detect); Parainfluenza Virus 1 Not Detected (Not Detect); Parainfluenza Virus 2 Not Detected (Not Detect); Parainfluenza Virus 3 Not Detected (Not Detect); Parainfluenza Virus 4 Not Detected (Not Detect); Respiratory Syncytial Virus Not Detected (Not Detect); SARS-CoV-2 Not Detected (Not Detect)
== END 2021-09-01 15:06 | DRG 493 ==
LOC: EMEROOARM 10:03 → 4WAOSI 10:03 → SUATTDRO 17:19 → 4WAOSI 08-29 17:17
PROVIDERS: ADMIT Internal Medicine; ATTEND Pharmacist